=== PATIENT | female | born 1985 | race Caucasian/White ===

== ENCOUNTER 2021-01-22 13:29 | Emergency (ER) | payer OTHER, SELFPAY ==
--- NOTE | ~2021-01-22 | CT_ITS ---
EXAMINATION: CT ABDOMEN AND PELVIS WITH CONTRAST CLINICAL INFORMATION: Abdominal pain, vomiting. COMPARISON: None TECHNIQUE: Multidetector volumetric images were obtained from the superior aspect of the liver through the pubic symphysis following administration 85 mL of Omnipaque 350 intravenous contrast. Sagittal and coronal reformatted images were obtained on the technologist's workstation. Oral contrast: No This CT examination was performed using dose optimization techniques as appropriate, variously including the following: *Automated exposure control *Adjustment of mA and/or kV according to patient size (this includes techniques or standardized protocols for targeted exams where dose is matched to indication/reason for exam; i.e. extremities or head) *Use of iterative reconstruction technique DLP: 336 mGy-cm FINDINGS: LUNG BASES: The visualized lung bases are unremarkable. LIVER, GALLBLADDER, AND BILIARY TREE: The liver is normal in size, shape, and attenuation. No focal hepatic lesion or biliary ductal dilatation is present. The gallbladder is unremarkable with no evidence of radiopaque gallstones, gallbladder wall thickening, or obvious pericholecystic inflammatory changes. PANCREAS: Unremarkable. SPLEEN: Unremarkable. ADRENAL GLANDS: Unremarkable. KIDNEYS AND URETERS: There is either caliectasis of the left kidney versus parapelvic cysts, the latter are considered more likely. The kidneys are otherwise unremarkable as are the ureters. BLADDER: Unremarkable. GASTROINTESTINAL TRACT: The small and large bowel are unremarkable. The appendix is unremarkable. ABDOMINAL WALL: No significant hernia is appreciated. LYMPH NODES: No lymphadenopathy within the abdomen or pelvis by CT criteria. There is fat stranding at the central mesentery with numerous prominent lymph nodes seen within this fat which exerts slight mass effect upon the surrounding small bowel loops. VASCULAR: Unremarkable. PELVIC VISCERA: Complex appearance of the left adnexa with heterogeneous partially cystic partially enhancing lesions. The right adnexa demonstrates either a septated cyst versus 2 closely approximated cysts. The uterus is unremarkable. Trace pelvic free fluid likely physiologic. OSSEOUS STRUCTURES: Unremarkable. CT/CT abdomen pelvis w con IMPRESSION: 1. Complex appearance of the left adnexa with heterogeneous, partially cystic, partially enhancing areas. Correlation with pelvic ultrasound is recommended for initial follow-up. 2. Cystic spaces at the left renal hilum favored to represent parapelvic cysts although caliectasis is within the differential diagnosis. The ureters normal in course and caliber. 3. Subtle fat stranding of the central mesentery with numerous prominent lymph nodes seen, a sanam mesentery appearance. This has a broad differential which includes mesenteric adenitis. It has been described with lymphoma although typically there is a history of lymphoma or evidence of lymphadenopathy elsewhere, not seen on this patient. In the absence of symptoms, it is of uncertain etiology or clinical significance. If there is continued clinical concern, a follow-up CT scan could be obtained in 3-6 months.
--- NOTE | ~2021-01-22 | US_ITS ---
EXAM: Pelvic Ultrasound CLINICAL INDICATION: Left-sided pelvic pain. Rule out torsion. COMPARISON: Same day CT abdomen pelvis. TECHNIQUE: The pelvis was evaluated using transabdominal and transvaginal imaging. Color Doppler imaging and spectral analysis of the bilateral ovaries was also performed. FINDINGS: The uterus measures approximately 8.5 x 4.1 x 4.6 cm in longitudinal by AP by transverse dimension. The endometrial stripe is not thickened and measures 0.5 cm. The cervix measures approximately 2.8 cm in length. Small nabothian cysts are noted within the cervix. The left ovary measures approximately 3.3 x 2.1 x 2.1 cm and is normal. The right ovary measures approximately 3.8 x 3.4 x 3.4 cm and contains a simple appearing approximately 2.8 cm cyst. Spectral analysis reveals normal arterial and venous waveforms in the bilateral ovaries. There is a [id number] amount of free fluid in the pelvis. US/US pelvic ovarian doppler IMPRESSION: 1. Normal thickness endometrial stripe. 2. Both ovaries demonstrate normal arterial and venous waveforms. 3. 2.8 cm simple appearing right ovarian cyst. 4. Mild to moderate amount of free pelvic fluid, nonspecific.
--- NOTE | ~2021-01-22 | US_ITS ---
EXAM: Pelvic Ultrasound CLINICAL INDICATION: Left-sided pelvic pain. Rule out torsion. COMPARISON: Same day CT abdomen pelvis. TECHNIQUE: The pelvis was evaluated using transabdominal and transvaginal imaging. Color Doppler imaging and spectral analysis of the bilateral ovaries was also performed. FINDINGS: The uterus measures approximately 8.5 x 4.1 x 4.6 cm in longitudinal by AP by transverse dimension. The endometrial stripe is not thickened and measures 0.5 cm. The cervix measures approximately 2.8 cm in length. Small nabothian cysts are noted within the cervix. The left ovary measures approximately 3.3 x 2.1 x 2.1 cm and is normal. The right ovary measures approximately 3.8 x 3.4 x 3.4 cm and contains a simple appearing approximately 2.8 cm cyst. Spectral analysis reveals normal arterial and venous waveforms in the bilateral ovaries. There is a [id number] amount of free fluid in the pelvis. US/US pelvic complete IMPRESSION: 1. Normal thickness endometrial stripe. 2. Both ovaries demonstrate normal arterial and venous waveforms. 3. 2.8 cm simple appearing right ovarian cyst. 4. Mild to moderate amount of free pelvic fluid, nonspecific.
[2021-01-22 13:33] VITALS: BP 136/68; RESP 18; TEMP 36.6; O2SAT 98
[2021-01-22 16:27] LABS: MANUAL DIFF FLAG NO
[2021-01-22 16:40] LABS: Basophils Percent Auto 0.4 % (0-2); Eosinophils Absolute Auto 0.1 X10*3/uL (0.0-0.4); Eosinophils Percent Auto 1.6 % (0-4); Hematocrit 36.6 % (37-47); Hemoglobin 12.1 g/dl (12.0-16.0); Imm Gran Abs Auto 0.01 X10*3/uL (0.00-0.03); Imm Gran Pct Auto 0.2 % (0.0-0.4); Lymphocytes Absolute Auto 1.6 X10*3/uL (1.2-4.9); Lymphocytes Percent Auto 29.7 % (20-40); Mean Corpuscular HGB Conc 33.1 g/dl (31.0-35.0); Mean Corpuscular Hemoglobin 29.5 pg (27.0-33.0); Mean Corpuscular Volume 89.3 fL (80-98); Mean Platelet Volume 11.1 fL (9.4-12.3); Monocytes Absolute Auto 0.5 X10*3/uL (0.1-1.2); Monocytes Percent Auto 9.3 % (2-11); Neutrophils Absolute Auto 3.2 X10*3/uL (2.0-8.3); Neutrophils Percent Auto 58.8 % (45-73); Platelet Count 234 X10*3/uL (160-400); Red Cell Distribution Width 12.3 % (11.0-16.0); White Blood Count 5.5 X10*3/uL (4.8-10.8)
[2021-01-22 16:43] VITALS: BP 106/66; PULSE 67; RESP 18; TEMP 36.8; O2SAT 100
--- NOTE | 2021-01-22 16:56 | ED_ITS ---
HPI - Abdominal Pain General Chief Complaint: Abdominal Pain Stated Complaint: stomach pain Time Seen by Provider: 01/22/21 16:22 Source: patient Mode of arrival: ambulatory Limitations: no limitations History of Present Illness HPI narrative: 35-year-old female previously healthy here with complaints of upper back pain for 2 weeks, 1 week of decreased appetite and vomiting and now upper abdominal pain since last night with the sensation of food being stuck. No fevers, chills, urinary symptoms. No constipation or diarrhea. No sick contacts or recent travel Related Data Previous Rx's Medication Instructions Recorded ketorolac 10 mg tablet 10 mg PO Q8H #10 tab 01/22/21 ondansetron 4 mg disintegrating 4 mg PO Q6H PRN #10 tab 01/22/21 tablet Allergies Allergy/AdvReac Type Severity Reaction Status Date / Time No Known Allergies Allergy Verified 01/22/21 13:32 Review of Systems Review of Systems Yes all other systems are reviewed and are negative Constitutional: Reports no additional constitutional complaints, Denies body ache(s), Denies chills, Denies fever(s), Denies headache(s) and Denies weakness Eyes: Reports no additional eye complaints and Denies change in vision Reports system reviewed and no additional complaints, except as documented, Denies dizziness, Denies headache(s), Denies nasal congestion, Denies nasal discharge and Denies neck pain Cardiovascular: Reports no additional cardiovascular complaints, Denies chest pain, Denies leg edema and Denies dyspnea Respiratory: Reports no additional respiratory complaints, Denies cough and Denies dyspnea Gastrointestinal: Reports no additional gastrointestinal complaints, Reports abdominal pain, Denies diarrhea, Reports nausea and Reports vomiting Genitourinary: Reports no additional female genitourinary complaints and Denies urinary incontinence Musculoskeletal: Reports no additional musculoskeletal complaints, Reports back pain, Denies arthralgias, Denies joint swelling, Denies neck pain, Denies nu mbness and Denies tingling Skin/Breast: Reports system reviewed and no additional complaints, except as docu and Denies rash Reports system reviewed and no additional complaints, except as documented, Denies Abnormal speech present, Denies dizziness, Denies headache(s), Denies numbness, Denies tingling and Denies weakness Physical Exam Vital Signs: Vital Signs: Last Vital Signs Temp 98.3 F 01/22/21 16:43 Pulse 67 01/22/21 16:43 Resp 18 01/22/21 16:43 BP 106/66 01/22/21 16:43 Pulse Ox 100 01/22/21 16:43 Body Mass Index 20.0 Const: General: cooperative, healthy appearing, comfortable and no acute distress Orientation/consciousness: patient oriented x3 Limitations: no limitations HENMT: Head: Yes normal to inspection Ears: hearing grossly normal bilaterally General nose exam: Normal external nose present Face and sinus: Yes normal facial exam Mouth: Normal oral and palatal mucosa present Throat: Yes posterior oropharynx normal Eyes: General: appearance normal, both eyes and all related structures Pupils: Equal, round and reactive pupils present Neck: Neck: Yes normal visual inspection Chest: Chest palpation & inspection: normal inspection of the chest Resp: Effort & Inspection: normal respiratory effort Auscultation: clear to auscultation bilaterally Cardio: Rate: regular rate Rhythm: regular rhythm Peripheral pulses: Peripheral pulses 2+ throughout GI: Inspection: Yes normal to inspection Palpation (GI): Soft to palpation, Tenderness to palpation present (GI) (Diffusely tender) and Guarding due to palpation present (GI) Auscultation: normal bowel sounds Back/Spine/Pelvis: Thoracic/Lumbar Spine: thoracic and lumbar spine normal to inspection Skin: General skin exam: no rashes or lesions noted Neuro: General: patient oriented x3, no focal motor deficits and normal sensation to monofilament Cranial nerves: Yes Equal, round and reactive pupils present Cognition (Neuro): normal cognition Speech: No Abnormal speech present Gait exam (Neuro): Normal gait present Motor exam (neuro): 5/5 motor strength present throughout Extrem: General: Yes normal to inspection Course Course Course Narrative: 35-year-old female here with complaints of upper back pain, decreased p.o. intake, vomiting, and upper abdominal pain. On exam the patient has tenderness diffusely in the abdomen. She is hemodynamically stable. Will check labs, UA, urine , CT. 1844- CT A/P IMPRESSION: ? 1. Complex appearance of the left adnexa with heterogeneous, partially cystic, partially enhancing areas. Correlation with pelvic ultrasound is recommended for initial follow-up. 2. Cystic spaces at the left renal hilum favored to represent parapelvic cysts although caliectasis is within the differential diagnosis. The ureters normal in course and caliber. 3. Subtle fat stranding of the central mesentery with numerous prominent lymph nodes seen, a sanam mesentery appearance. This has a broad differential which includes mesenteric adenitis. It has been described with lymphoma although typically there is a history of lymphoma or evidence of lymphadenopathy elsewhere, not seen on this patient. In the absence of symptoms, it is of uncertain etiology or clinical significance. If there is continued clinical concern, a follow-up CT scan could be obtained in 3-6 months. -discussed with Dr. Gillis. Recommended obtaining a pelvic ultrasound to rule out ovarian torsion. 2030- Pelvic US IMPRESSION: 1.? Normal thickness endometrial stripe. 2.? Both ovaries demonstrate normal arterial and venous waveforms. 3.? 2.8 cm simple appearing right ovarian cyst. 4.? Mild to moderate amount of free pelvic fluid, nonspecific. -no evidence of torsion. Patient is feeling pain free after receiving Toradol IV. She did experience some mild itching and hives locally after the IV contrast from the CT which improved with IV Benadryl. No airway involvement. No angioedema. Stable vital signs. Reviewed findings with the patient. We discussed she should follow-up with her primary care doctor for repeat CT scan. Reviewed worrisome signs and symptoms of when to return to the emergency department. Comfortable discharge home. MDM - Abdominal Pain MDM Narrative Medical decision making narrative: cholecystitis Differential Diagnosis Differential diagnosis: Likely acute appendicitis, diverticulitis, gastroenteritis, gastritis and pancreatitis Medical Records Attestation: I reviewed the patient's medical records. Lab Data Attestation: I reviewed the patient's lab results. Result diagrams: 01/22/21 16:21 01/22/21 16:21 Labs: Lab Results 01/22/21 01/22/21 01/22/21 Range/Units 16:21 16:21 16:45 WBC 5.5 (4.8-10.8) X10*3/uL RBC 4.10 L (4.20-5.50) X10*6/uL Hgb 12.1 (12.0-16.0) g/dl Hct 36.6 L (37-47) % MCV 89.3 (80-98) fL MCH 29.5 (27.0-33.0) pg MCHC 33.1 (31.0-35.0) g/dl RDW 12.3 (11.0-16.0) % Plt Count 234 (160-400) X10*3/uL MPV 11.1 (9.4-12.3) fL Immature Gran % (Auto) 0.2 (0.0-0.4) % Neut % (Auto) 58.8 (45-73) % Lymph % (Auto) 29.7 (20-40) % [place] % (Auto) 9.3 (2-11) % Eos % (Auto) 1.6 (0-4) % Baso % (Auto) 0.4 (0-2) % Lymph # (Auto) 1.6 (1.2-4.9) X10*3/uL [place] # (Auto) 0.5 (0.1-1.2) X10*3/uL Eos # (Auto) 0.1 (0.0-0.4) X10*3/uL Baso # (Auto) 0.0 (0.0-0.2) X10*3/uL Abs Immat Gran (auto) 0.01 (0.00-0.03) X10*3/uL Absolute Neuts (auto) 3.2 (2.0-8.3) X10*3/uL Absolute Nucleated RBC 0.000 (0.0-0.012) X10*3/uL Nucleated RBC % (auto) 0.0 (0.0-0.2) /100WBC Sodium 137 (135-145) mmol/L Potassium 4.1 (3.3-5.1) mmol/L Chloride 106 (96-108) mmol/L Carbon Dioxide 24 (22-29) mmol/L Anion Gap 11 L (12-20) BUN 16 (9-16) mg/dL Creatinine 0.64 (0.5-1.4) mg/dL Estim Creat Clear Calc 100.8 Estimated GFR > 60 Random Glucose 93 (60-115) mg/dL Calcium 8.9 (8.4-10.2) mg/dL Total Bilirubin 0.6 (0.0-1.0) mg/dL Direct Bilirubin 0.2 (0.0-0.5) mg/dL AST 12 (5-31) U/L ALT 8 (0-31) U/L Alkaline Phosphatase 46 (39-117) U/L Total Protein 7.3 (6.5-8.0) g/dL Albumin 4.3 (3.5-5.0) g/dL Lipase 17 (8-78) U/L Urine Color YELLOW Urine Appearance CLEAR Urine pH 6.0 (5.0-8.0) Ur Specific [place] 1.025 (1.005-1.025) Urine Protein NEG (NEG-TRACE) MG/DL Urine Glucose (UA) NEG (NEG) MG/DL Urine Ketones NEG (NEG) MG/DL Urine Blood 3+ H (NEG) Urine Nitrite NEG (NEG) Ur Leukocyte Esterase NEG (NEG) Urine RBC 30-49 H (0) /HPF Urine WBC 0-2 (0-4) /HPF Ur Squamous Epith Cells 1+ /LPF Amorphous Sediment 1+ /LPF Urine Bacteria NONE /LPF Urine Test (NEGATIVE) 01/22/21 Range/Units 16:45 WBC (4.8-10.8) X10*3/uL RBC (4.20-5.50) X10*6/uL Hgb (12.0-16.0) g/dl Hct (37-47) % MCV (80-98) fL MCH (27.0-33.0) pg MCHC (31.0-35.0) g/dl RDW (11.0-16.0) % Plt Count (160-400) X10*3/uL MPV (9.4-12.3) fL Immature Gran % (Auto) (0.0-0.4) % Neut % (Auto) (45-73) % Lymph % (Auto) (20-40) % [place] % (Auto) (2-11) % Eos % (Auto) (0-4) % Baso % (Auto) (0-2) % Lymph # (Auto) (1.2-4.9) X10*3/uL [place] # (Auto) (0.1-1.2) X10*3/uL Eos # (Auto) (0.0-0.4) X10*3/uL Baso # (Auto) (0.0-0.2) X10*3/uL Abs Immat Gran (auto) (0.00-0.03) X10*3/uL Absolute Neuts (auto) (2.0-8.3) X10*3/uL Absolute Nucleated RBC (0.0-0.012) X10*3/uL Nucleated RBC % (auto) (0.0-0.2) /100WBC Sodium (135-145) mmol/L Potassium (3.3-5.1) mmol/L Chloride (96-108) mmol/L Carbon Dioxide (22-29) mmol/L Anion Gap (12-20) BUN (9-16) mg/dL Creatinine (0.5-1.4) mg/dL Estim Creat Clear Calc Estimated GFR Random Glucose (60-115) mg/dL Calcium (8.4-10.2) mg/dL Total Bilirubin (0.0-1.0) mg/dL Direct Bilirubin (0.0-0.5) mg/dL AST (5-31) U/L ALT (0-31) U/L Alkaline Phosphatase (39-117) U/L Total Protein (6.5-8.0) g/dL Albumin (3.5-5.0) g/dL Lipase (8-78) U/L Urine Color Urine Appearance Urine pH (5.0-8.0) Ur Specific [place] (1.005-1.025) Urine Protein (NEG-TRACE) MG/DL Urine Glucose (UA) (NEG) MG/DL Urine Ketones (NEG) MG/DL Urine Blood (NEG) Urine Nitrite (NEG) Ur Leukocyte Esterase (NEG) Urine RBC (0) /HPF Urine WBC (0-4) /HPF Ur Squamous Epith Cells /LPF Amorphous Sediment /LPF Urine Bacteria /LPF Urine Test NEGATIVE (NEGATIVE) Imaging Data pelvic US: Attestation: I personally reviewed and interpreted this imaging study as follows: Radiologist's impression: IMPRESSION: 1.? Normal thickness endometrial stripe. 2.? Both ovaries demonstrate normal arterial and venous waveforms. 3.? 2.8 cm simple appearing right ovarian cyst. 4.? Mild to moderate amount of free pelvic fluid, nonspecific. CT scan - abdomen: Attestation: I personally reviewed and interpreted this imaging study as follows: Radiologist's impression: CT/CT abdomen pelvis w con IMPRESSION: ? 1. Complex appearance of the left adnexa with heterogeneous, partially cystic, partially enhancing areas. Correlation with pelvic ultrasound is recommended for initial follow-up. 2. Cystic spaces at the left renal hilum favored to represent parapelvic cysts although caliectasis is within the differential diagnosis. The ureters normal in course and caliber. 3. Subtle fat stranding of the central mesentery with numerous prominent lymph nodes seen, a sanam mesentery appearance. This has a broad differential which includes mesenteric adenitis. It has been described with lymphoma although typically there is a history of lymphoma or evidence of lymphadenopathy elsewhere, not seen on this patient. In the absence of symptoms, it is of uncertain etiology or clinical significance. If there is continued clinical concern, a follow-up CT scan could be obtained in 3-6 months. Discharge Plan Discharge Clinical Impression: Abdominal pain, Ovarian cyst Patient Disposition: Home, Self-Care Instructions: Ovarian Cyst (ED), Abdominal Pain (ED) Additional Instructions: Your CT scan shows inflamed lymph nodes in the abdomen. It is recommended you have a repeat CT scan and 3-6 months. This can be ordered by your primary care doctor. You should follow-up with them as scheduled Increase fluids, rest Heat the abdomen is needed Prescriptions: New ondansetron 4 mg tablet,disintegrating 4 mg PO Q6H PRN (Reason: nausea and vomiting) Qty: 10 RF: 0 ketorolac 10 mg tablet 10 mg PO Q8H Qty: 10 RF: 0 Referrals: Freddy Beach MD [Primary Care Provider] - 2 days Interventions: ED Discharge Assessment Last Done: 01/22/21 20:32 [facility] Past Medical History Attestation statement: The following information was validated with the patient. Source: old records reviewed and nursing notes reviewed Medical History Patient denies medical problems Social History Social History Advance Directives: No Advance Directives Information Provided: Yes Patient : No
[2021-01-22 16:59] LABS: Glucose Urine UA NEG (NEG); Leukocyte Esterase Urine NEG (NEG); Nitrite Urine NEG (NEG); Specific Gravity - Urine 1.025 (1.005-1.025); UACC Culture Trigger NO; Urine Blood 3+ (NEG); Urine Ketones NEG (NEG); Urine Protein NEG (NEG-TRACE)
[2021-01-22 17:01] LABS: Appearance Urine CLEAR; Color Urine YELLOW
[2021-01-22 17:01] LABS: Alanine Aminotransferase 8 U/L (0-31); Albumin Level 4.3 g/dL (3.5-5.0); Alkaline Phosphatase 46 U/L (39-117); Anion Gap 11 (12-20); Aspartate Amino Transferase 12 U/L (5-31); Bilirubin Direct 0.2 mg/dL (0.0-0.5); Bilirubin Total 0.6 mg/dL (0.0-1.0); Blood Urea Nitrogen 16 mg/dL (9-16); Calcium 8.9 mg/dL (8.4-10.2); Carbon Dioxide 24 mmol/L (22-29); Chloride 106 mmol/L (96-108); Creatinine Clr Calc Pharmacy 100.8; Estimated Glomerular Filt Rate > 60; Glucose Random 93 mg/dL (60-115); Lipase 17 U/L (8-78); Potassium 4.1 mmol/L (3.3-5.1); Sodium 137 mmol/L (135-145); Total Protein 7.3 g/dL (6.5-8.0)
[2021-01-22 17:03] LABS: UPreg QC Valid YES; Urine Pregnancy NEGATIVE (NEGATIVE)
[2021-01-22] MEDS: Lidocaine HCl Viscous 2 % 15 ML SOLUTION MUCOUS MEM (17:14)
[2021-01-22] MEDS: Magnesium Hydrox/Alum Hydrox 30 ML ORAL.SUSP PO (17:14)
[2021-01-22 17:15] LABS: Amorphous Sediment Urine 1+ /LPF; RBC Urine 30-49 /HPF (0); Squamous Epithelial Cell Urine 1+ /LPF; WBC Urine 0-2 /HPF (0-4)
[2021-01-22] MEDS: Famotidine/PF 20 MG/2 ML VIAL IVPUSH (17:16)
[2021-01-22] MEDS: iohexoL 350 MG/ML 100 ML INFUS..BTL IV (18:04)
[2021-01-22] MEDS: Ketorolac Tromethamine 15 MG/ML VIAL 30 MG IVPUSH (19:42)
[2021-01-22] MEDS: diphenhydrAMINE HCL 50 MG/ML VIAL IVPUSH (19:50)
== END 2021-01-22 23:58 | disposition home or self-care (01) ==
PROVIDERS: Emergency Provider Emergency Medicine; PCP Internal Medicine
DX: N83.202 Unspecified ovarian cyst, left side (principal); N83.201 Unspecified ovarian cyst, right side; R10.9 Unspecified abdominal pain; M54.5 Low back pain; Z79.899 Other long term (current) drug therapy
CPT/HCPCS: 36415; 74177; 76856; 80048; 80076; 81001; 81025; 83690; 85025; 93975; 96365; 96375; 99284; J1200; J1885; Q9967

== ENCOUNTER 2021-02-02 12:15 | Emergency (ER) | payer OTHER, SELFPAY ==
--- NOTE | ~2021-02-02 | CT_ITS ---
EXAMINATION: CT ABDOMEN AND PELVIS WITH CONTRAST CLINICAL INFORMATION: Upper abdomen/RLQ TTP. Nausea/vomiting. COMPARISON: 01/22/2021 TECHNIQUE: Multidetector volumetric imaging was performed from the superior aspect of the liver through the pubic symphysis following administration of 85 cc of Omnipaque intravenous contrast Sagittal and coronal reformatted images were obtained on the technologist workstation.. This CT examination was performed using dose optimization techniques as appropriate, variously including the following: *Automated exposure control *Adjustment of mA and/or kV according to patient size (this includes techniques or standardized protocols for targeted exams where dose is matched to indication/reason for exam; i.e. extremities or head) *Use of iterative reconstruction technique DLP: 346 mGy-cm FINDINGS: LUNG BASES: Minimal left basilar atelectasis. LIVER, GALLBLADDER, AND BILIARY TREE: Liver is normal in size and shape. There is mild periportal edema now seen which is a nonspecific finding of questionable acute significance. No suspicious focal hepatic lesion or biliary ductal dilatation The gallbladder is contracted but otherwise unremarkable with no evidence of radiopaque gallstones, gallbladder wall thickening, or obvious pericholecystic inflammatory changes. PANCREAS: Unremarkable. SPLEEN: Unremarkable. ADRENAL GLANDS: Unremarkable. KIDNEYS AND URETERS: Mild fullness to the left collecting system and left ureter but I do not appreciate any perinephric stranding. No obvious ureteric or intrarenal calculi and this noncontrast study. BLADDER: Unremarkable. GASTROINTESTINAL TRACT: Colon is partially decompressed. I do not appreciate any colonic wall thickening or pericolonic inflammatory changes. No obstructive changes. Visualized small bowel unremarkable ABDOMINAL WALL: No significant hernia is appreciated. LYMPHOVASCULAR STRUCTURES: The aorta is unremarkable. There is mild mesenteric stranding seen with several low-attenuation mesenteric lymph nodes noted similar to the prior 01/22/2021 study. PELVIC VISCERA: Physiologic changes are seen within the uterus and ovaries. There is fullness to both adnexa with multiple small follicles again seen bilaterally. Small amount of likely physiologic free fluid in the dependent pelvis. Overall this appears similar to the 01/22/2021 study OSSEOUS STRUCTURES: Unremarkable. CT/CT abdomen pelvis w con IMPRESSION: Physiologic changes to the uterus and ovaries similar in appearance to the prior 01/22/2021 CT scan. Of note there was a pelvic ultrasound performed at that time as well. Small amount of likely physiologic free fluid in the cul-de-sac. There is stranding to the mesenteric fat with prominent mesenteric lymph nodes again identified similar in appearance to the prior study. The appearance is nonspecific with multiple etiologies having an overlapping appearance. 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
[2021-02-02 12:47] VITALS: BP 129/77; PULSE 74; RESP 16; TEMP 36.8; O2SAT 100; BMI 19.7
[2021-02-02 15:08] VITALS: BP 118/66; PULSE 65; RESP 12; TEMP 36.8; O2SAT 100
--- NOTE | 2021-02-02 15:19 | ED_ITS ---
HPI - Abdominal Pain General Chief Complaint: Abdominal Pain Stated Complaint: stomach pains Time Seen by Provider: 02/02/21 15:08 Source: patient Mode of arrival: ambulatory History of Present Illness HPI narrative: 35-year-old female with no significant past medical history presenting to the ED with continued abdominal pain, nausea, and vomiting x1 week with inability to tolerate p.o.. Patient was recently seen and treated in our ED on 01/22/2021 for similar symptoms, had labs, and CT showing atypical lymphadenopathy, also pelvic ultrasound showing nonspecific pelvic free fluid, was re-evaluated by PCP today and sent back to the ED for further evaluation. Denies fever, chills, diarrhea/constipation, dysuria/hematuria, vaginal b leeding/discharge, suspicious food intake MD elicited complaint: abdominal pain Related Data Previous Rx's Medication Instructions Recorded ketorolac 10 mg tablet 10 mg PO Q8H #10 tab 01/22/21 ondansetron 4 mg disintegrating 4 mg PO Q6H PRN #10 tab 01/22/21 tablet ketorolac 10 mg tablet 10 mg PO TID PRN 5 Days #15 tab 02/02/21 ondansetron HCl 4 mg tablet 4 mg PO Q8H PRN #10 tab 02/02/21 (Zofran) Allergies Allergy/AdvReac Type Severity Reaction Status Date / Time No Known Allergies Allergy Verified 01/22/21 13:32 Review of Systems Review of Systems Constitutional: No Fever, No Chills, No Fatigue, No Malaise ENT/Mouth: No Ear Pain, No Nasal Congestion, No sore throat, No Swallowing Di fficulty Eyes: No Eye Pain, No Swelling Cardiovascular: No Chest Pain, No SOB Respiratory: No Cough, No Dyspnea Gastrointestinal: + Nausea, + Vomiting, No Diarrhea, No Constipation, + Abdominal pain, No Hematochezia, No Melena Genitourinary: No irregular bleeding, No Dysuria, No Urinary Frequency, No Hematuria, No Flank Pain Musculoskeletal: No joint pain, No Myalgias Skin: No Skin Lesions, No rash Neuro: No Weakness, No Headache Yes all other systems are reviewed and are negative Physical Exam Vital Signs: Vital Signs: Last Vital Signs Temp 98.2 F 02/02/21 15:08 Pulse 74 02/02/21 16:27 Resp 18 02/02/21 16:27 BP 118/66 02/02/21 15:08 Pulse Ox 100 02/02/21 16:27 Body Mass Index 19.7 Const: General: cooperative, healthy appearing and no acute distress Orientation/consciousness: patient oriented x3 Limitations: no limitations HENMT: Head: Yes normal to inspection Ears: hearing grossly normal bilaterally General nose exam: Normal external nose present Face and sinus: Yes normal facial exam Eyes: General: appearance normal, both eyes and all related structures EOM: EOMs intact bilaterally Neck: Neck: Yes normal visual inspection Resp: Effort & Inspection: normal respiratory effort and no respiratory distress Cardio: Rate: regular rate GI: Inspection: Yes normal to inspection Palpation (GI): Soft to palpation, Tenderness to palpation present (GI) in the RLQ, in the LUQ and in the RUQ, no guarding and not rigid : General: Yes no CVA tenderness Back/Spine/Pelvis: Back: no CVA tenderness Skin: Rashes: no rashes Wounds: no wounds Neuro: General: patient oriented x3 Gait exam (Neuro): Normal gait present Extrem: General: Yes normal to inspection Course Course Course Narrative: -no leukocytosis. H&H is stable, BUN elevated to 22 likely from dehydration, labs otherwise unremarkable -UA with 40 ketones consistent with dehydration > patient given 2L IVF CT abdomen pelvis w con IMPRESSION: Physiologic changes to the uterus and ovaries similar in appearance to the prior 01/22/2021 CT scan. Of note there was a pelvic ultrasound performed at that time as well. Small amount of likely physiologic free fluid in the cul-de-sac. ? There is stranding to the mesenteric fat with prominent mesenteric lymph nodes again identified similar in appearance to the prior study. The appearance is nonspecific with multiple etiologies having an overlapping appearance. 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 >> results discussed with patient including worrisome signs and symptoms and strict return precautions. The calloused with patient needed follow-up with PCP for repeat CT in 3-6 months as previously recommended. Will p.o. challenge and re-evaluate. -190--patient tolerated p.o. kasey juan and saltines in the ED without nausea/vomiting. Admission was offered however patient would like to go home. Worrisome signs and symptoms and strict return precautions discussed, she verbalized understanding feel safe for discharge home MDM - Abdominal Pain MDM Narrative Medical decision making narrative: 35-year-old female with no significant past medical history presenting to the ED with continued abdominal pain, nausea, and vomiting x1 week with inability to tolerate p.o. on exam VSS, NAD, abdomen soft with upper/RLQ ttp, no rebound or guarding, no CVAT. Concern for appendicitis vs pancreatitis vs cholecystitis/lithiasis vs gastroenteritis or colitis. P revious CT concerning for possible lymphoma. Plan: Labs, UA, urine , repeat CT, IVF, symptomatic treatment, reassess Differential Diagnosis Differential diagnosis: Likely abdominal pain Medical Records Attestation: I reviewed the patient's medical records. Lab Data Attestation: I reviewed the patient's lab results. Result diagrams: 02/02/21 15:27 02/02/21 15:27 Labs: Lab Results 02/02/21 02/02/21 02/02/21 Range/Units 15:27 15:27 15:27 WBC 6.1 (4.8-10.8) X10*3/uL RBC 4.04 L (4.20-5.50) X10*6/uL Hgb 11.5 L (12.0-16.0) g/dl Hct 35.7 L (37-47) % MCV 88.4 (80-98) fL MCH 28.5 (27.0-33.0) pg MCHC 32.2 (31.0-35.0) g/dl RDW 11.9 (11.0-16.0) % Plt Count 226 (160-400) X10*3/uL MPV 10.5 (9.4-12.3) fL Immature Gran % (Auto) 0.2 (0.0-0.4) % Neut % (Auto) 54.5 (45-73) % Lymph % (Auto) 36.5 (20-40) % [place] % (Auto) 7.5 (2-11) % Eos % (Auto) 1.0 (0-4) % Baso % (Auto) 0.3 (0-2) % Lymph # (Auto) 2.2 (1.2-4.9) X10*3/uL [place] # (Auto) 0.5 (0.1-1.2) X10*3/uL Eos # (Auto) 0.1 (0.0-0.4) X10*3/uL Baso # (Auto) 0.0 (0.0-0.2) X10*3/uL Abs Immat Gran (auto) 0.01 (0.00-0.03) X10*3/uL Absolute Neuts (auto) 3.3 (2.0-8.3) X10*3/uL Absolute Nucleated RBC 0.000 (0.0-0.012) X10*3/uL Nucleated RBC % (auto) 0.0 (0.0-0.2) /100WBC Sodium 139 (135-145) mmol/L Potassium 3.9 (3.3-5.1) mmol/L Chloride 107 (96-108) mmol/L Carbon Dioxide 24 (22-29) mmol/L Anion Gap 12 (12-20) BUN 22 H (9-16) mg/dL Creatinine 0.68 (0.5-1.4) mg/dL Estim Creat Clear Calc 93.2 Estimated GFR > 60 Random Glucose 85 (60-115) mg/dL Lactic Acid 0.8 (0.5-2.0) mmol/L Calcium 9.3 (8.4-10.2) mg/dL Magnesium 2.2 (1.6-2.6) mg/dL Total Bilirubin 0.5 (0.0-1.0) mg/dL Direct Bilirubin < 0.2 (0.0-0.5) mg/dL AST 15 (5-31) U/L ALT 15 (0-31) U/L Alkaline Phosphatase 32 L D (39-117) U/L Total Protein 7.3 (6.5-8.0) g/dL Albumin 4.4 (3.5-5.0) g/dL Lipase 11 (8-78) U/L Urine Color Urine Appearance Urine pH (5.0-8.0) Ur Specific [place] (1.005-1.025) Urine Protein (NEG-TRACE) MG/DL Urine Glucose (UA) (NEG) MG/DL Urine Ketones (NEG) MG/DL Urine Blood (NEG) Urine Nitrite (NEG) Ur Leukocyte Esterase (NEG) Urine Test (NEGATIVE) 02/02/21 02/02/21 Range/Units 16:42 16:42 WBC (4.8-10.8) X10*3/uL RBC (4.20-5.50) X10*6/uL Hgb (12.0-16.0) g/dl Hct (37-47) % MCV (80-98) fL MCH (27.0-33.0) pg MCHC (31.0-35.0) g/dl RDW (11.0-16.0) % Plt Count (160-400) X10*3/uL MPV (9.4-12.3) fL Immature Gran % (Auto) (0.0-0.4) % Neut % (Auto) (45-73) % Lymph % (Auto) (20-40) % [place] % (Auto) (2-11) % Eos % (Auto) (0-4) % Baso % (Auto) (0-2) % Lymph # (Auto) (1.2-4.9) X10*3/uL [place] # (Auto) (0.1-1.2) X10*3/uL Eos # (Auto) (0.0-0.4) X10*3/uL Baso # (Auto) (0.0-0.2) X10*3/uL Abs Immat Gran (auto) (0.00-0.03) X10*3/uL Absolute Neuts (auto) (2.0-8.3) X10*3/uL Absolute Nucleated RBC (0.0-0.012) X10*3/uL Nucleated RBC % (auto) (0.0-0.2) /100WBC Sodium (135-145) mmol/L Potassium (3.3-5.1) mmol/L Chloride (96-108) mmol/L Carbon Dioxide (22-29) mmol/L Anion Gap (12-20) BUN (9-16) mg/dL Creatinine (0.5-1.4) mg/dL Estim Creat Clear Calc Estimated GFR Random Glucose (60-115) mg/dL Lactic Acid (0.5-2.0) mmol/L Calcium (8.4-10.2) mg/dL Magnesium (1.6-2.6) mg/dL Total Bilirubin (0.0-1.0) mg/dL Direct Bilirubin (0.0-0.5) mg/dL AST (5-31) U/L ALT (0-31) U/L Alkaline Phosphatase (39-117) U/L Total Protein (6.5-8.0) g/dL Albumin (3.5-5.0) g/dL Lipase (8-78) U/L Urine Color YELLOW Urine Appearance CLEAR Urine pH 6.0 (5.0-8.0) Ur Specific [place] 1.015 (1.005-1.025) Urine Protein NEG (NEG-TRACE) MG/DL Urine Glucose (UA) NEG (NEG) MG/DL Urine Ketones 40 (NEG) MG/DL Urine Blood NEG (NEG) Urine Nitrite NEG (NEG) Ur Leukocyte Esterase NEG (NEG) Urine Test NEGATIVE (NEGATIVE) Discharge Plan Discharge Clinical Impression: Abdominal pain Qualifiers: Abdominal location: generalized Qualified Code(s): R10.84 - Generalized abdominal pain Patient Disposition: Home, Self-Care Instructions: Abdominal Pain (ED) Additional Instructions: Your blood work was reassuring today in the ED. Her CT scan is similar to prior CT on 01/22/2021 showing nonspecific lymphadenopathy, it is recommended you for repeat CT scan in 6 months for re-evaluation. Ketorolac is an anti-inflammatory/pain medication, take with food Zofran as antinausea medication, take as needed It is very important they were staying hydrated at home, drink plenty of fluids You need to follow-up with a clinic specialist If her symptoms persist or worsen, your unable to eat or drink, develops fever, persistent nausea/vomiting please return to the ED immediately Prescriptions: New ondansetron HCl [Zofran] 4 mg tablet 4 mg PO Q8H PRN (Reason: nausea and vomiting) Qty: 10 RF: 0 ketorolac 10 mg tablet 10 mg PO TID PRN (Reason: pain) 5 Days Qty: 15 RF: 0 No Action ondansetron 4 mg tablet,disintegrating 4 mg PO Q6H PRN (Reason: nausea and vomiting) Qty: 10 RF: 0 ketorolac 10 mg tablet 10 mg PO Q8H Qty: 10 RF: 0 Referrals: Ramon Hayes MD [Physician] - 5 days [facility] Past Medical History Attestation statement: The following information was validated with the patient. Medical History Patient denies medical problems Social History Social History Advance Directives: No Advance Directives Information Provided: No Patient : No
[2021-02-02 15:31] LABS: MANUAL DIFF FLAG NO
[2021-02-02] MEDS: Ketorolac Tromethamine 15 MG/ML VIAL IVPUSH (15:31)
[2021-02-02] MEDS: Famotidine/PF 20 MG/2 ML VIAL IVPUSH (15:32)
[2021-02-02] MEDS: diphenhydrAMINE HCL 50 MG/ML VIAL IVPUSH (15:32)
[2021-02-02] MEDS: ondansetron HCL 4 MG/2 ML VIAL IVPUSH (15:32)
[2021-02-02 15:33] LABS: Basophils Percent Auto 0.3 % (0-2); Eosinophils Absolute Auto 0.1 X10*3/uL (0.0-0.4); Hematocrit 35.7 % (37-47); Hemoglobin 11.5 g/dl (12.0-16.0); Imm Gran Abs Auto 0.01 X10*3/uL (0.00-0.03); Imm Gran Pct Auto 0.2 % (0.0-0.4); Lymphocytes Absolute Auto 2.2 X10*3/uL (1.2-4.9); Lymphocytes Percent Auto 36.5 % (20-40); Mean Corpuscular HGB Conc 32.2 g/dl (31.0-35.0); Mean Corpuscular Hemoglobin 28.5 pg (27.0-33.0); Mean Corpuscular Volume 88.4 fL (80-98); Mean Platelet Volume 10.5 fL (9.4-12.3); Monocytes Absolute Auto 0.5 X10*3/uL (0.1-1.2); Monocytes Percent Auto 7.5 % (2-11); Neutrophils Absolute Auto 3.3 X10*3/uL (2.0-8.3); Neutrophils Percent Auto 54.5 % (45-73); Platelet Count 226 X10*3/uL (160-400); Red Blood Count 4.04 X10*6/uL (4.20-5.50); Red Cell Distribution Width 11.9 % (11.0-16.0); White Blood Count 6.1 X10*3/uL (4.8-10.8)
[2021-02-02] MEDS: 0.9 % Sodium Chloride 1,000 ML 999 ML IVCONT ×2 (15:35→16:27)
[2021-02-02 15:56] LABS: Lactic Acid 0.8 mmol/L (0.5-2.0)
[2021-02-02 16:02] LABS: Alanine Aminotransferase 15 U/L (0-31); Albumin Level 4.4 g/dL (3.5-5.0); Alkaline Phosphatase 32 U/L (39-117); Anion Gap 12 (12-20); Aspartate Amino Transferase 15 U/L (5-31); Bilirubin Direct < 0.2 mg/dL (0.0-0.5); Bilirubin Total 0.5 mg/dL (0.0-1.0); Blood Urea Nitrogen 22 mg/dL (9-16); Calcium 9.3 mg/dL (8.4-10.2); Carbon Dioxide 24 mmol/L (22-29); Chloride 107 mmol/L (96-108); Creatinine Clr Calc Pharmacy 93.2; Estimated Glomerular Filt Rate > 60; Glucose Random 85 mg/dL (60-115); Lipase 11 U/L (8-78); Magnesium 2.2 mg/dL (1.6-2.6); Potassium 3.9 mmol/L (3.3-5.1); Sodium 139 mmol/L (135-145); Total Protein 7.3 g/dL (6.5-8.0)
[2021-02-02 16:27] VITALS: PULSE 74; RESP 18; O2SAT 100
[2021-02-02 16:52] LABS: Glucose Urine UA NEG (NEG); Leukocyte Esterase Urine NEG (NEG); Nitrite Urine NEG (NEG); Specific Gravity - Urine 1.015 (1.005-1.025); Urine Blood NEG (NEG); Urine Ketones 40 MG/DL (NEG); Urine Protein NEG (NEG-TRACE)
[2021-02-02 16:56] LABS: Appearance Urine CLEAR; Color Urine YELLOW
[2021-02-02 16:57] LABS: UPreg QC Valid YES; Urine Pregnancy NEGATIVE (NEGATIVE)
[2021-02-02] MEDS: iohexoL 350 MG/ML 100 ML INFUS..BTL IV (17:25)
--- NOTE | 2021-02-02 19:18 | PC.NURSE ---
pt is feeling nausea and denies pain. 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 pt sat at 100% hr 70 no ss of distress. skin pink warm and dry.pt is alert and oriented.
== END 2021-02-02 19:30 | disposition home or self-care (01) ==
PROVIDERS: Physician Assistant; Emergency Provider Emergency Medicine
DX: R10.84 Generalized abdominal pain (principal); R11.2 Nausea with vomiting, unspecified
CPT/HCPCS: 36415; 74177; 80048; 80076; 81003; 81025; 83605; 83690; 83735; 85025; 96361; 96374; 96375; 99284; J1200; J1885; J2405; Q9967

== ENCOUNTER 2021-10-17 17:36 | Emergency (ER) | payer OTHER, SELFPAY ==
--- NOTE | ~2021-10-17 | CT_ITS ---
EXAMINATION: CT HEAD WITHOUT CONTRAST CLINICAL INFORMATION: Headache COMPARISON: None TECHNIQUE: Contiguous axial imaging was performed from the skull base to vertex without intravenous administration of contrast. This CT examination was performed using dose optimization techniques as appropriate, variously including the following: *Automated exposure control *Adjustment of mA and/or kV according to patient size (this includes techniques or standardized protocols for targeted exams where dose is matched to indication/reason for exam; i.e. extremities or head) *Use of iterative reconstruction technique DLP: 535 mGy-cm FINDINGS: There is no evidence of acute intracranial hemorrhage or territorial infarction. No abnormal mass effect or midline shift is seen. Stephens to white matter differentiation is well preserved. No extra-axial fluid collections are identified. The ventricles are normal in size. There is no abnormal attenuation within the brain parenchyma. The osseous structures and soft tissues are normal. The mastoid air cells are well aerated. Minimal mucosal sinus thickening in right ethmoid air cells. The other visualized paranasal sinuses are unremarkable. CT/CT head/brain wo con IMPRESSION: No acute intracranial pathology.
[2021-10-17 17:38] VITALS: BP 154/89; PULSE 122; RESP 20; TEMP 37.7; O2SAT 100; BMI 18.8
--- NOTE | 2021-10-17 18:03 | ED.HA ---
HPI - Headache General Chief Complaint: Headache Stated Complaint: Headache Time Seen by Provider: 10/17/21 17:48 History of Present Illness HPI Narrative: Patient is a 28 year presented with a fever headache frontal. Associated with neck pain associated photophobia no significant past before. No coughing or congestion no respiratory. No no recent travel. No focal weakness Related Data Previous Rx's Medication Instructions Recorded ketorolac 10 mg tablet 10 mg PO Q8H #10 tab 01/22/21 ondansetron 4 mg disintegrating 4 mg PO Q6H PRN #10 tab 01/22/21 tablet ketorolac 10 mg tablet 10 mg PO TID PRN 5 Days #15 tab 02/02/21 ondansetron HCl 4 mg tablet 4 mg PO Q8H PRN #10 tab 02/02/21 (Zofran) Allergies Allergy/AdvReac Type Severity Reaction Status Date / Time No Known Allergies Allergy Verified 10/17/21 17:42 Review of Systems Review of Systems: No chest pain or shortness breath paresis Yes all other systems are reviewed and are negative [facility] Past Medical History Attestation statement: The following information was validated with the patient. Medical History Patient denies medical problems Social History Social History Advance Directives: No Advance Directives Information Provided: No Patient : No Physical Exam Vital Signs: Vital Signs: Last Vital Signs Temp 98.2 F 10/17/21 19:25 Pulse 83 10/17/21 20:25 Resp 14 10/17/21 20:25 BP 108/65 10/17/21 20:25 Pulse Ox 98 10/17/21 20:25 BMI result Body Mass Index 18.8 Appearance: Alert. Oriented X3. No acute distress. Eyes: Pupils equal, round and reactive to light. ENT: Pharynx normal. Neck: Normal inspection. Neck supple. No lymph nodes noted. No crepitus CVS: Normal heart rate and rhythm. Pulses normal. Normal S1 and S2 Respiratory: No respiratory distress. Breath sounds normal. No Wheezing. No rales Abdomen: Soft and nontender. No rigidity. No distention. good BS x4 Skin: Skin warm and dry. Normal skin color. Normal skin turgor. Extremities: No lower extremity edema. Neurovascular intact to all extremities. No Lacerations. No Rash Neuro: Oriented X 3. No motor deficit. No sensory deficit. Moving all extermities. No slurred speech MDM - Headache MDM Narrative Medical decision making narrative: Patient initially complaining of fever headache neck pain. Labs ordered CT scan of the head was grossly negative for any acute evidence of bleeding. Because the patient's fever neck pain. Discussed with patient the need to do a lumbar puncture to rule out the possibility of meningitis. Antibiotic was given. Patient did not want the lumbar puncture did not want to stay in the hospital. After medication for migraine headache the headache subsided. Explained to patient the workup is not complete. Patient wants to go home. States understanding. Repeat exam patient neurologically intact. Medical Records Attestation: I reviewed the patient's medical records. Lab Data Attestation: I reviewed the patient's lab results. Result diagrams: 10/17/21 18:34 10/17/21 18:34 Labs: Lab Results 10/17/21 10/17/21 10/17/21 Range/Units 18:34 18:34 18:34 WBC 6.6 (4.8-10.8) X10*3/uL RBC 4.12 L (4.20-5.50) X10*6/uL Hgb 12.1 (12.0-16.0) g/dl Hct 35.8 L (37.0-47.0) % MCV 86.9 (80.0-98.0) fL MCH 29.4 (27.0-33.0) pg MCHC 33.8 (31.0-35.0) g/dl RDW 11.8 (11.0-16.0) % Plt Count 203 (160-400) X10*3/uL MPV 10.7 (9.4-12.3) fL Immature Gran % (Auto) 0.3 (0.0-0.4) % Neut % (Auto) 83.9 H (45-73) % Lymph % (Auto) 5.2 L (20-40) % [place] % (Auto) 10.2 (2-11) % Eos % (Auto) 0.2 (0-4) % Baso % (Auto) 0.2 (0-2) % Lymph # (Auto) 0.3 L (1.2-4.9) X10*3/uL [place] # (Auto) 0.7 (0.1-1.2) X10*3/uL Eos # (Auto) 0.0 (0.0-0.4) X10*3/uL Baso # (Auto) 0.0 (0.0-0.2) X10*3/uL Abs Immat Gran (auto) 0.02 (0.00-0.03) X10*3/uL Absolute Neuts (auto) 5.5 (2.0-8.3) x10*3/uL Absolute Nucleated RBC 0.000 (0.0-0.012) X10*3/uL Nucleated RBC % (auto) 0.0 (0.0-0.2) /100WBC Sodium 139 (135-145) mmol/L Potassium 3.7 (3.3-5.1) mmol/L Chloride 106 (96-108) mmol/L Carbon Dioxide 23 (22-29) mmol/L Anion Gap 14 (12-20) BUN 13 (9-16) mg/dL Creatinine 0.70 (0.5-1.4) mg/dL Estim Creat Clear Calc 85.8 Estimated GFR > 60 Random Glucose 80 (60-115) mg/dL Lactic Acid 1.1 (0.5-2.0) mmol/L Calcium 9.7 (8.4-10.2) mg/dL Total Bilirubin 0.2 (0.0-1.0) mg/dL Direct Bilirubin < 0.2 (0.0-0.5) mg/dL AST 15 (5-31) U/L ALT 12 (0-31) U/L Alkaline Phosphatase 31 L (39-117) U/L Total Protein 7.7 (6.5-8.0) g/dL Albumin 4.4 (3.5-5.0) g/dL Urine Color Urine Appearance Urine pH (5.0-8.0) Ur Specific [place] (1.005-1.025) Urine Protein (NEG-TRACE) MG/DL Urine Glucose (UA) (NEG) MG/DL Urine Ketones (NEG) MG/DL Urine Blood (NEG) Urine Nitrite (NEG) Ur Leukocyte Esterase (NEG) Urine RBC (0) /HPF Urine WBC (0-4) /HPF Ur Squamous Epith Cells /LPF Calcium Oxalate Crystal /LPF Urine Bacteria /LPF Urine Mucus /LPF Urine Test (NEGATIVE) 10/17/21 10/17/21 Range/Units 19:24 19:24 WBC (4.8-10.8) X10*3/uL RBC (4.20-5.50) X10*6/uL Hgb (12.0-16.0) g/dl Hct (37.0-47.0) % MCV (80.0-98.0) fL MCH (27.0-33.0) pg MCHC (31.0-35.0) g/dl RDW (11.0-16.0) % Plt Count (160-400) X10*3/uL MPV (9.4-12.3) fL Immature Gran % (Auto) (0.0-0.4) % Neut % (Auto) (45-73) % Lymph % (Auto) (20-40) % [place] % (Auto) (2-11) % Eos % (Auto) (0-4) % Baso % (Auto) (0-2) % Lymph # (Auto) (1.2-4.9) X10*3/uL [place] # (Auto) (0.1-1.2) X10*3/uL Eos # (Auto) (0.0-0.4) X10*3/uL Baso # (Auto) (0.0-0.2) X10*3/uL Abs Immat Gran (auto) (0.00-0.03) X10*3/uL Absolute Neuts (auto) (2.0-8.3) x10*3/uL Absolute Nucleated RBC (0.0-0.012) X10*3/uL Nucleated RBC % (auto) (0.0-0.2) /100WBC Sodium (135-145) mmol/L Potassium (3.3-5.1) mmol/L Chloride (96-108) mmol/L Carbon Dioxide (22-29) mmol/L Anion Gap (12-20) BUN (9-16) mg/dL Creatinine (0.5-1.4) mg/dL Estim Creat Clear Calc Estimated GFR Random Glucose (60-115) mg/dL Lactic Acid (0.5-2.0) mmol/L Calcium (8.4-10.2) mg/dL Total Bilirubin (0.0-1.0) mg/dL Direct Bilirubin (0.0-0.5) mg/dL AST (5-31) U/L ALT (0-31) U/L Alkaline Phosphatase (39-117) U/L Total Protein (6.5-8.0) g/dL Albumin (3.5-5.0) g/dL Urine Color YELLOW Urine Appearance CLEAR Urine pH 6.0 (5.0-8.0) Ur Specific [place] 1.010 (1.005-1.025) Urine Protein NEG (NEG-TRACE) MG/DL Urine Glucose (UA) NEG (NEG) MG/DL Urine Ketones NEG (NEG) MG/DL Urine Blood NEG (NEG) Urine Nitrite NEG (NEG) Ur Leukocyte Esterase NEG (NEG) Urine RBC 0 (0) /HPF Urine WBC 0 (0-4) /HPF Ur Squamous Epith Cells 3+ /LPF Calcium Oxalate Crystal TRACE /LPF Urine Bacteria NONE /LPF Urine Mucus 4+ /LPF Urine Test NEGATIVE (NEGATIVE) Discharge Plan Discharge Clinical Impression: Headache Patient Disposition: Left Against Medical Advice Instructions: Acute Headache (DC), Against Medical Advice (ED) Prescriptions: No Action ondansetron 4 mg tablet,disintegrating 4 mg PO Q6H PRN (Reason: nausea and vomiting) Qty: 10 0RF ketorolac 10 mg tablet 10 mg PO Q8H Qty: 10 0RF Rx Instructions: received first dose in ed ondansetron HCl [Zofran] 4 mg tablet 4 mg PO Q8H PRN (Reason: nausea and vomiting) Qty: 10 0RF ketorolac 10 mg tablet 10 mg PO TID PRN (Reason: pain) 5 Days Qty: 15 0RF Referrals: Physician,Unknown J [Primary Care Provider] - (Risk of meningitis exist. If you change of mind please come back to the emergency department.)
[2021-10-17 18:39] LABS: MANUAL DIFF FLAG NO
[2021-10-17 18:41] LABS: Basophils Percent Auto 0.2 % (0-2); Eosinophils Percent Auto 0.2 % (0-4); Hematocrit 35.8 % (37.0-47.0); Hemoglobin 12.1 g/dl (12.0-16.0); Imm Gran Abs Auto 0.02 X10*3/uL (0.00-0.03); Imm Gran Pct Auto 0.3 % (0.0-0.4); Lymphocytes Absolute Auto 0.3 X10*3/uL (1.2-4.9); Lymphocytes Percent Auto 5.2 % (20-40); Mean Corpuscular HGB Conc 33.8 g/dl (31.0-35.0); Mean Corpuscular Hemoglobin 29.4 pg (27.0-33.0); Mean Corpuscular Volume 86.9 fL (80.0-98.0); Mean Platelet Volume 10.7 fL (9.4-12.3); Monocytes Absolute Auto 0.7 X10*3/uL (0.1-1.2); Monocytes Percent Auto 10.2 % (2-11); Neutrophils Absolute Auto 5.5 x10*3/uL (2.0-8.3); Neutrophils Percent Auto 83.9 % (45-73); Platelet Count 203 X10*3/uL (160-400); Red Blood Count 4.12 X10*6/uL (4.20-5.50); Red Cell Distribution Width 11.8 % (11.0-16.0); White Blood Count 6.6 X10*3/uL (4.8-10.8)
[2021-10-17] MEDS: cefTRIAXone sodium 2 GM in 0.9 % Sodium Chloride 50 ML IV (18:45)
[2021-10-17] MEDS: 0.9 % Sodium Chloride 1,000 ML 999 ML IV (18:46)
[2021-10-17 18:56] LABS: Alanine Aminotransferase 12 U/L (0-31); Albumin Level 4.4 g/dL (3.5-5.0); Alkaline Phosphatase 31 U/L (39-117); Anion Gap 14 (12-20); Aspartate Amino Transferase 15 U/L (5-31); Bilirubin Direct < 0.2 mg/dL (0.0-0.5); Bilirubin Total 0.2 mg/dL (0.0-1.0); Blood Urea Nitrogen 13 mg/dL (9-16); Calcium 9.7 mg/dL (8.4-10.2); Carbon Dioxide 23 mmol/L (22-29); Chloride 106 mmol/L (96-108); Creatinine Clr Calc Pharmacy 85.8; Estimated Glomerular Filt Rate > 60; Glucose Random 80 mg/dL (60-115); Potassium 3.7 mmol/L (3.3-5.1); Sodium 139 mmol/L (135-145); Total Protein 7.7 g/dL (6.5-8.0)
[2021-10-17 19:00] LABS: Lactic Acid 1.1 mmol/L (0.5-2.0)
--- NOTE | 2021-10-17 19:10 | PC.NURSE ---
Took report from Jie to assume care of Pt.
[2021-10-17 19:25] VITALS: BP 135/73; PULSE 92; RESP 16; TEMP 36.8; O2SAT 100
[2021-10-17 19:32] LABS: Appearance Urine CLEAR; Color Urine YELLOW; Glucose Urine UA NEG (NEG); Leukocyte Esterase Urine NEG (NEG); Nitrite Urine NEG (NEG); Urine Blood NEG (NEG); Urine Ketones NEG (NEG); Urine Protein NEG (NEG-TRACE)
[2021-10-17 19:34] LABS: UPreg QC Valid YES; Urine Pregnancy NEGATIVE (NEGATIVE)
[2021-10-17 19:38] LABS: Calcium Oxalate Crystals Urine TRACE /LPF; Mucus Urine 4+ /LPF; RBC Urine 0 /HPF (0); Squamous Epithelial Cell Urine 3+ /LPF; WBC Urine 0 /HPF (0-4)
[2021-10-17] MEDS: ondansetron HCL 4 MG/2 ML VIAL IVPUSH (19:42)
[2021-10-17] MEDS: HYDROmorphone HCl 0.5 MG/0.5 ML SYRINGE IVPUSH (19:42)
[2021-10-17 20:25] VITALS: BP 108/65; PULSE 83; RESP 14; O2SAT 98
[2021-10-17] MEDS: Ketorolac Tromethamine 30 MG/ML VIAL IVPUSH (20:39)
[2021-10-17] MEDS: Metoclopramide HCl 10 MG/2 ML VIAL IVPUSH (20:53)
[2021-10-17 21:33] VITALS: BP 96/53; PULSE 70; RESP 16; O2SAT 96
[2021-10-17 21:35] VITALS: BP 100/55
[2021-10-19 22:13] LABS: Lyme Abs Screen <0.90 index
[2021-10-22 17:26] LABS: A. Phagocytophilum Ab IgG <1:64 (<1:64); A. Phagocytophilum Ab IgM <1:20 (<1:20); E. Chaffeensis Ab IgG <1:64 (<1:64); E. Chaffeensis Ab IgM <1:20 (<1:20)
== END 2021-10-17 21:38 | disposition left against medical advice (07) ==
PROVIDERS: Emergency Provider Emergency Medicine Emergency Medical Services
DX: R51.9 Headache, unspecified (principal); M54.2 Cervicalgia
CPT/HCPCS: 36415; 70450; 80048; 80076; 81001; 81025; 83605; 85025; 86617; 86618; 86666; 87040; 96365; 96375; 99284; J0696; J1170; J1885; J2405; J2765

== ENCOUNTER 2023-04-15 10:59 | Emergency (ER) | payer OTHER, SELFPAY ==
--- NOTE | ~2023-04-15 | XR_ITS ---
EXAMINATION: XR CHEST CLINICAL INFORMATION: Chest pain COMPARISON: None available. TECHNIQUE: Frontal view of the chest was obtained. FINDINGS: No significant abnormality is noted involving the heart, lungs, mediastinum, bony thorax or soft tissues. XR/XR chest 1V IMPRESSION: Unremarkable examination.
--- NOTE | ~2023-04-15 | CT_ITS ---
EXAMINATION: CT ANGIOGRAM OF THE CHEST WITH AND WITHOUT CONTRAST (CT PULMONARY ANGIOGRAM FOR PE) CLINICAL INFORMATION: Reason for Exam Chest pain, SOB, palpitations, recent trip R/O PE COMPARISON: None available. TECHNIQUE: Prior to contrast administration, noncontrast localization images were obtained. Subsequently, multidetector volumetric imaging was performed from the thoracic inlet to below the diaphragms following the administration of 80 mL Omnipaque 350 intravenous contrast. No contrast reaction reported Sagittal, coronal, and MIP oblique sagittal reformatted images were obtained on the CT workstation, uploaded to PACS, and reviewed. This CT examination was performed using dose optimization techniques as appropriate, variously including the following: *Automated exposure control *Adjustment of mA and/or kV according to patient size (this includes techniques or standardized protocols for targeted exams where dose is matched to indication/reason for exam; i.e. extremities or head) *Use of iterative reconstruction technique Total exam dose-length product 247 mGy-cm FINDINGS: QUALITY OF STUDY/CONTRAST BOLUS: Satisfactory. PULMONARY ARTERIES: No pulmonary emboli. THORACIC AORTA: No aneurysm. LUNG: No focal consolidation, nodules or masses. PLEURA: No pleural effusion or pneumothorax. MEDIASTINUM: Normal heart size. No pericardial effusion. No hilar or mediastinal lymphadenopathy. No evidence of septal bowing or right heart strain. CORONARY ARTERY CALCIFICATION: None visualized on this study. CHEST WALL/AXILLA: No axillary or internal mammary lymphadenopathy. OSSEOUS STRUCTURES: No acute or suspicious osseous abnormality. UPPER ABDOMEN: Unremarkable. No reflux of contrast into the hepatic veins to suggest elevated right heart pressures. CT/CT angio chest PE protocol IMPRESSION: No evidence for pulmonary embolus. No active cardiopulmonary disease. VTE: Negative.
--- NOTE | 2023-04-15 11:00 | ECG_ITS ---
Test Reason : cp Blood Pressure : / mmHG Vent. Rate : 097 BPM Atrial Rate : 097 BPM P-R Int : 136 ms QRS Dur : 084 ms QT Int : 346 ms P-R-T Axes : 071 012 029 degrees QTc Int : 439 ms Normal sinus rhythm RSR' or QR pattern in V1 suggests right ventricular conduction delay Otherwise normal ECG No previous ECGs available Referred By: Generic ED Physician Electronically Signed By:KAYLYN NUNES MD
[2023-04-15 11:14] VITALS: BP 137/90; PULSE 87; RESP 18; TEMP 36.8; O2SAT 100; BMI 22.0
--- NOTE | 2023-04-15 11:17 | PC.NURSE ---
a&ox3, vss and up to date, nsr/sinus tachy on panel monitor. pt comes in today d/t new onset chest pain. pt states pain radiates to left upper extremity. pt also c/o numbness/tingling/n/v/headache/diaphoresis/sob. pt able to speak in full/clear sentences w/o difficultly. no sob/wob noted at this time. respirations even and unlabored. provider bedside assessing patient. call alcala placed within reach.
--- NOTE | 2023-04-15 11:24 | PC.NURSE ---
tech bedside obtaining labs.
--- NOTE | 2023-04-15 11:35 | PC.NURSE ---
pt currently ambulating to bathroom at this time w/o difficulty. pt has steady gait. no wob/sob shown at this time. will draw labs when pt returns.
--- NOTE | 2023-04-15 11:46 | PC.NURSE ---
labs obtained and sent to lab.
[2023-04-15 11:50] LABS: MANUAL DIFF FLAG NO
[2023-04-15 11:54] LABS: Basophils Percent Auto 0.4 % (0-2); Eosinophils Percent Auto 0.8 % (0-4); Hematocrit 41.5 % (37.0-47.0); Hemoglobin 14.1 g/dl (12.0-16.0); Imm Gran Abs Auto 0.01 X10*3/uL (0.00-0.03); Imm Gran Pct Auto 0.2 % (0.0-0.4); Lymphocytes Absolute Auto 1.5 X10*3/uL (1.2-4.9); Lymphocytes Percent Auto 27.7 % (20-40); Mean Corpuscular Hemoglobin 30.2 pg (27.0-33.0); Mean Corpuscular Volume 88.9 fL (80.0-98.0); Mean Platelet Volume 10.6 fL (9.4-12.3); Monocytes Absolute Auto 0.4 X10*3/uL (0.1-1.2); Monocytes Percent Auto 8.4 % (2-11); Neutrophils Absolute Auto 3.3 x10*3/uL (2.0-8.3); Neutrophils Percent Auto 62.5 % (45-73); Platelet Count 270 X10*3/uL (160-400); Red Blood Count 4.67 X10*6/uL (4.20-5.50); Red Cell Distribution Width 11.4 % (11.0-16.0); White Blood Count 5.2 X10*3/uL (4.8-10.8)
[2023-04-15 12:02] LABS: D Dimer High Sensitivity < 150 NG/ML
[2023-04-15 12:14] LABS: B Type Natriuretic Peptide < 10 pg/mL (<100)
[2023-04-15 12:17] LABS: Alanine Aminotransferase 15 U/L (0-31); Albumin Level 4.4 g/dL (3.5-5.0); Alkaline Phosphatase 43 U/L (39-117); Anion Gap 12 (12-20); Aspartate Amino Transferase 17 U/L (5-31); Bilirubin Direct 0.1 mg/dL (0.0-0.5); Bilirubin Total 0.3 mg/dL (0.0-1.0); Blood Urea Nitrogen 20 mg/dL (9-16); Calcium 9.7 mg/dL (8.4-10.2); Carbon Dioxide 20 mmol/L (22-29); Chloride 109 mmol/L (96-108); Estimated Glomerular Filt Rate > 60; Glucose Random 92 mg/dL (60-115); Lipase 14 U/L (8-78); Potassium 3.6 mmol/L (3.3-5.1); Sodium 137 mmol/L (135-145)
[2023-04-15 12:20] LABS: HCG Quantitative < 2 mIU/mL; Troponin-I High Sensitivity < 2.7 ng/L (<3.5-17.0)
[2023-04-15 12:33] VITALS: BP 114/75; PULSE 79; RESP 16; O2SAT 100
--- NOTE | 2023-04-15 12:33 | PC.NURSE ---
pt c/p 03/29 headache at this time and requesting pain medication - will notify provider.
--- NOTE | 2023-04-15 12:43 | PC.NURSE ---
urine sample obtained and sent to lab.
[2023-04-15 13:00] LABS: Appearance Urine Clear; Color Urine Yellow; Glucose Urine UA Negative (Negative); Leukocyte Esterase Urine Moderate (2+) (Negative); Nitrite Urine Negative (Negative); PH 7.5 (5.0-9.0); Specific Gravity - Urine 1.025 (1.005-1.025); UMIC TRIGGER UACC YES; Urine Blood Negative (Negative); Urine Ketones Negative (Negative); Urine Protein Negative (Neg-Trace)
[2023-04-15 13:09] LABS: Bacteria Urine None Seen (None Seen); Hyaline Casts Urine 0-2 /LPF (0-2); RBC Urine 0-2 /HPF (0-2); UACC Culture Trigger YES
--- NOTE | 2023-04-15 13:20 | PC.NURSE ---
per dr. roblero verbal order - 650mg PO tylenol ordered by this RN. repeat troponin level ordered as well.
[2023-04-15] MEDS: LORazepam 0.5 MG TABLET PO (13:40)
[2023-04-15] MEDS: Acetaminophen 325 MG TABLET 650 MG PO (13:40)
--- NOTE | 2023-04-15 13:51 | PC.NURSE ---
medication administered per provider order and repeat troponin sent to lab. call alcala placed within reach.
[2023-04-15 14:00] VITALS: BP 100/72; PULSE 79; RESP 16; O2SAT 100
--- NOTE | 2023-04-15 14:13 | ED.CHESTPAIN ---
HPI - Chest Pain General Chief Complaint: Chest Pain Stated Complaint: Chest pain, numbness left arm Time Seen by Provider: 04/15/23 11:03 History of Present Illness HPI narrative: Patient is a 38-year-old female presents today with having chest pain that is been ongoing since yesterday it is pretty constant it is mid chest it goes to the arm patient denies any history of being on control pills. No history of blood clots in the past no long distance travel no leg swelling no history of diabetes, hypertension, high cholesterol, smoking, [place]. No family history of coronary artery disease. No risk stratification done in the past. Complaining of pain that is in the chest. Patient been under some stress in her life. No fever no chills. No diaphoresis. The pain sometimes goes to the shoulder sometimes worse with deep breath patient has nonspecific tingling. She is from home Related Data Previous Rx's Medication Instructions Recorded ketorolac 10 mg tablet 10 mg PO Q8H #10 tabs 01/22/21 ondansetron 4 mg disintegrating 4 mg PO Q6H PRN nausea and 01/22/21 tablet vomiting #10 tabs ketorolac 10 mg tablet 10 mg PO TID PRN pain 5 days #15 02/02/21 tabs ondansetron HCl 4 mg tablet 4 mg PO Q8H PRN nausea and 02/02/21 (Zofran) vomiting #10 tabs Allergies Allergy/AdvReac Type Severity Reaction Status Date / Time No Known Allergies Allergy Verified 04/15/23 11:14 Review of Systems Review of Systems: Positive chest pain Yes all other systems are reviewed and are negative PMFSH Past Medical History Medical History Patient denies medical problems Social History Social History Smoked in Last 30 Days: No Use of substances other than those prescribed or required for medical reasons: No Advance Directives: No Patient : No Physical Exam Vital Signs: Vital Signs: Last Vital Signs Temp 98.2 F 04/15/23 11:14 Pulse 79 04/15/23 12:33 Resp 16 04/15/23 12:33 BP 114/75 04/15/23 12:33 Pulse Ox 100 04/15/23 12:33 O2 Del Method Room Air 10/27/23 12:33 BMI result Body Mass Index 22.0 Appearance: Alert. Oriented X3. No acute distress. Eyes: Pupils equal, round and reactive to light. ENT: Pharynx normal. Neck: Normal inspection. Neck supple. No lymph nodes noted. No crepitus CVS: Normal heart rate and rhythm. Pulses normal. Normal S1 and S2 Respiratory: No respiratory distress. Breath sounds normal. No Wheezing. No rales Abdomen: Soft and nontender. No rigidity. No distention. good BS x4 Skin: Skin warm and dry. Normal skin color. Normal skin turgor. Extremities: No lower extremity edema. Neurovascular intact to all extremities. No Lacerations. No Rash Neuro: Oriented X 3. No motor deficit. No sensory deficit. Moving all extermities. No slurred speech Medications Administered Discontinued Medications Generic Name Dose Route Start Last Admin Trade Name Freq PRN Reason Stop Dose Admin Acetaminophen 650 mg 04/15/23 13:21 04/15/23 13:40 Acetaminophen 325 Mg Tablet PO 04/15/23 13:22 650 mg ONCE ONE Administration Lorazepam 0.5 mg 04/15/23 13:28 04/15/23 13:40 Lorazepam 0.5 Mg Tablet PO 04/15/23 13:29 0.5 mg ONCE ONE Administration Medical Decision Making Medical Decision Making [facility] Narrative: My interpretation of patient's EKG showed a sinus rhythm heart rate is 100 OH QRS QTC within normal limits is no acute ST segment elevation noted. Patient's chest pain not consistent with ACS with no significant cardiac risks 1st set of troponins are negative negative EKG will get a 2nd set troponin but her heart score is less than 3. Patient's chest x-ray by my interpretation showed no evidence of pneumonia no evidence of pneumothorax. Has no history of hypertension no history of smoking no family history of dissection. Is not consistent with dissection. Patient is 38 years old not on control pills. History not consistent with PE no consistent epic and PE risk factors. Patient's D-dimer is negative. Unlikely to have pulmonary emboli. Differential Diagnosis Differential Diagnoses: The differential diagnosis associated with the presentation includes Pneumonia pneumothorax dissection CAD PE Lab Data [facility] Lab Attestation statement: I reviewed the patient's lab results. 04/15/23 11:45 04/15/23 11:45 Labs: Lab Results 04/15/23 04/15/23 Range/Units 11:45 12:41 WBC 5.2 (4.8-10.8) X10*3/uL RBC 4.67 (4.20-5.50) X10*6/uL Hgb 14.1 (12.0-16.0) g/dl Hct 41.5 (37.0-47.0) % MCV 88.9 (80.0-98.0) fL MCH 30.2 (27.0-33.0) pg MCHC 34.0 (31.0-35.0) g/dl RDW 11.4 (11.0-16.0) % Plt Count 270 D (160-400) X10*3/uL MPV 10.6 (9.4-12.3) fL Immature Gran % (Auto) 0.2 (0.0-0.4) % Neut % (Auto) 62.5 (45-73) % Lymph % (Auto) 27.7 (20-40) % [place] % (Auto) 8.4 (2-11) % Eos % (Auto) 0.8 (0-4) % Baso % (Auto) 0.4 (0-2) % Lymph # (Auto) 1.5 (1.2-4.9) X10*3/uL [place] # (Auto) 0.4 (0.1-1.2) X10*3/uL Eos # (Auto) 0.0 (0.0-0.4) X10*3/uL Baso # (Auto) 0.0 (0.0-0.2) X10*3/uL Abs Immat Gran (auto) 0.01 (0.00-0.03) X10*3/uL Absolute Neuts (auto) 3.3 (2.0-8.3) x10*3/uL Absolute Nucleated RBC 0.000 (0.0-0.012) X10*3/uL Nucleated RBC % (auto) 0.0 (0.0-0.2) /100WBC D-Dimer High Sensitivty < 150 NG/ML Sodium 137 (135-145) mmol/L Potassium 3.6 (3.3-5.1) mmol/L Chloride 109 H (96-108) mmol/L Carbon Dioxide 20 L (22-29) mmol/L Anion Gap 12 (12-20) BUN 20 H (9-16) mg/dL Creatinine 0.71 (0.5-1.4) mg/dL Estim Creat Clear Calc 91.0 Estimated GFR > 60 Random Glucose 92 (60-115) mg/dL Calcium 9.7 (8.4-10.2) mg/dL Total Bilirubin 0.3 (0.0-1.0) mg/dL Direct Bilirubin 0.1 (0.0-0.5) mg/dL AST 17 (5-31) U/L ALT 15 (0-31) U/L Alkaline Phosphatase 43 (39-117) U/L Troponin I High Sens < 2.7 (<3.5-17.0) ng/L B-Natriuretic Peptide < 10 (<100) pg/mL Total Protein 8.0 (6.5-8.0) g/dL Albumin 4.4 (3.5-5.0) g/dL Lipase 14 (8-78) U/L Beta HCG, Quant < 2 mIU/mL Urine Color Yellow Urine Appearance Clear Urine pH 7.5 (5.0-9.0) Ur Specific [place] 1.025 (1.005-1.025) Urine Protein Negative (Neg-Trace) mg/dL Urine Glucose (UA) Negative (Negative) mg/dL Urine Ketones Negative (Negative) mg/dL Urine Blood Negative (Negative) Urine Nitrite Negative (Negative) Ur Leukocyte Esterase Moderate (2+) H (Negative) Urine RBC 0-2 (0-2) /HPF Urine WBC 6-10 H (0-5) /HPF Ur Squamous Epith Cells 6-10 (0-2) /HPF Urine Bacteria None Seen (None Seen) Hyaline Casts 0-2 (0-2) /LPF Urine Yeast Present Independent Interpretation I performed an independent interpretation of an: EKG Interpretation: My interpretation patient's EKG showed a sinus rhythm heart rate is 100 OH QRS QTC within normal limits is no acute ST segment elevation Radiology Impression Discussion of test interpretation with radiology: I have reviewed the radiologist's reading. External Record Review No significant old records here at [facility] Discharge Plan Discharge Clinical Impression: Chest pain Prescriptions: No Action ondansetron 4 mg tablet,disintegrating 4 mg PO Q6H PRN (Reason: nausea and vomiting) Qty: 10 0RF ketorolac 10 mg tablet 10 mg PO Q8H Qty: 10 0RF Rx Instructions: received first dose in ed ondansetron HCl [Zofran] 4 mg tablet 4 mg PO Q8H PRN (Reason: nausea and vomiting) Qty: 10 0RF ketorolac 10 mg tablet 10 mg PO TID PRN (Reason: pain) 5 Days Qty: 15 0RF
[2023-04-15 15:23] VITALS: BP 116/79; PULSE 69; RESP 21; TEMP 36.8; O2SAT 99
[2023-04-15 16:24] LABS: Troponin-I High Sensitivity < 2.7 ng/L (<3.5-17.0)
[2023-04-15] MEDS: Ibuprofen 400 MG TABLET PO (16:59)
[2023-04-15 18:06] VITALS: BP 129/85; PULSE 78; RESP 16; O2SAT 97
--- NOTE | 2023-04-15 20:37 | PC.NURSE ---
this rn assumed care of pt. pt a&Ox3. respirations even and unlabored, lung sounds clear bilaterally. pt denies pain at this time, resting comfortably at this time.
[2023-04-15] MEDS: iohexoL 350 MG/ML 100 ML INFUS..BTL IV (20:40)
[2023-04-15 21:58] VITALS: BP 137/70; PULSE 90; RESP 20; TEMP 36.4; O2SAT 100
== END 2023-04-15 22:54 | disposition home or self-care (01) ==
PROVIDERS: Emergency Medicine Emergency Medical Services; Emergency Provider Emergency Medicine Emergency Medical Services
DX: R07.9 Chest pain, unspecified (principal); R06.02 Shortness of breath; R00.0 Tachycardia, unspecified
CPT/HCPCS: 36410; 36415; 71045; 71275; 80048; 80076; 81001; 83690; 83880; 84484; 84702; 85025; 85379; 87086; 93005; 99284; 99285; Q9967

== ENCOUNTER 2023-04-19 11:00 | Emergency (ER) | payer OTHER, SELFPAY ==
[2023-04-19 11:26] VITALS: BP 120/81; PULSE 91; RESP 18; TEMP 36.4; O2SAT 100; BMI 22.5
--- NOTE | 2023-04-19 11:27 | ED_ITS ---
<Statement entered by Ministerio Mendoza MD - 04/19/23 20:54> Additional note was started in triage. See my note for full hx details HPI - General Adult General Chief complaint: Recheck/Abnormal Lab/Rx Stated complaint: Multiple Complaints Sent by [employer] [place] Medications Medication Instructions Recorded Confirmed cholecalciferol (vitamin D3) 50 50 mcg PO DAILY 04/19/23 04/19/23 mcg (2,000 unit) tablet loratadine 10 mg tablet (Claritin) 10 mg PO DAILY 04/19/23 04/19/23 tizanidine 4 mg tablet 4 mg PO Q8H PRN muscle spasm 04/19/23 04/19/23 Allergies Allergy/AdvReac Type Severity Reaction Status Date / Time No Known Allergies Allergy Verified 04/15/23 11:14 [facility] Past Medical History Medical History Patient denies medical problems Social History Social History Smoked in Last 30 Days: No Advance Directives: No Physical Exam ED Vital Signs: Vital Signs - 24 hr 04/19/23 11:26 04/19/23 15:30 04/19/23 15:52 Temperature 97.5 F 98 F 98.2 F Pulse Rate 91 65 65 Respiratory Rate 18 16 16 Blood Pressure 120/81 116/76 121/80 Pulse Oximetry 100 97 98 Oxygen Delivery Method Room Air Room Air Room Air BMI result Body Mass Index 22.5 Course Course Course Narrative: RME: 38yo F w/no sig PMHx c/o sent in by PCP to check her thyroid. Patient admits to palpitations and SOB, denies CP at present. Patient was seen in our ED on 04/15/23 for CP/similar sx, had negative w/u including CTA for PE. Admits sx are improved since Tuesday except for SOB. Patient Rx Holter Moitor by PCP which she will pickup tomorrow EKG, Labs ordered Full HPI, ROS and PE to be performed by primary ED provider. Medical Decision Making Lab Data 04/19/23 11:50 04/19/23 11:50 Labs: Lab Results 04/19/23 Range/Units 11:50 WBC 5.5 (4.8-10.8) X10*3/uL RBC 4.54 (4.20-5.50) X10*6/uL Hgb 13.5 (12.0-16.0) g/dl Hct 39.8 (37.0-47.0) % MCV 87.7 (80.0-98.0) fL MCH 29.7 (27.0-33.0) pg MCHC 33.9 (31.0-35.0) g/dl RDW 11.3 (11.0-16.0) % Plt Count 272 (160-400) X10*3/uL MPV 10.4 (9.4-12.3) fL Immature Gran % (Auto) 0.2 (0.0-0.4) % Neut % (Auto) 60.1 (45-73) % Lymph % (Auto) 30.8 (20-40) % [place] % (Auto) 7.9 (2-11) % Eos % (Auto) 0.6 (0-4) % Baso % (Auto) 0.4 (0-2) % Lymph # (Auto) 1.7 (1.2-4.9) X10*3/uL [place] # (Auto) 0.4 (0.1-1.2) X10*3/uL Eos # (Auto) 0.0 (0.0-0.4) X10*3/uL Baso # (Auto) 0.0 (0.0-0.2) X10*3/uL Abs Immat Gran (auto) 0.01 (0.00-0.03) X10*3/uL Absolute Neuts (auto) 3.3 (2.0-8.3) x10*3/uL Absolute Nucleated RBC 0.000 (0.0-0.012) X10*3/uL Nucleated RBC % (auto) 0.0 (0.0-0.2) /100WBC Sodium 137 (135-145) mmol/L Potassium 4.5 D (3.3-5.1) mmol/L Chloride 106 (96-108) mmol/L Carbon Dioxide 22 (22-29) mmol/L Anion Gap 14 (12-20) BUN 12 (9-16) mg/dL Creatinine 0.80 (0.5-1.4) mg/dL Estim Creat Clear Calc 80.7 Estimated GFR > 60 Random Glucose 97 (60-115) mg/dL Calcium 10.0 (8.4-10.2) mg/dL Magnesium 2.1 (1.6-2.6) mg/dL Total Bilirubin 0.6 (0.0-1.0) mg/dL Direct Bilirubin 0.2 (0.0-0.5) mg/dL AST 18 (5-31) U/L ALT 13 (0-31) U/L Alkaline Phosphatase 45 (39-117) U/L Troponin I High Sens < 2.7 (<3.5-17.0) ng/L Total Protein 8.2 H (6.5-8.0) g/dL Albumin 4.6 (3.5-5.0) g/dL TSH 2.06 (0.32-4.0) uIU/mL COVID-19 (IVET) Negative (Negative) COVID-19 Clin Com See Note Discharge Plan Discharge Clinical Impression: Encounter for wellness examination Patient Disposition: Home, Self-Care Instructions: Hypothyroidism (ED) Additional Instructions: Your seen emergency room for abnormal lab work. However repeated TSH in the ED is 2.06, in consideration of the fact that right now he does not have any symptoms with wanting Q require admission and we recommend follow-up in the next few days with her primary care physician to repeat your blood work. Return to the emergency room if you experience any lightheadedness, increased sleepiness, shortness of breath, fever. Prescriptions: No Action tizanidine 4 mg tablet 4 mg PO Q8H PRN (Reason: muscle spasm) loratadine [Claritin] 10 mg Tablet 10 mg PO DAILY cholecalciferol (vitamin D3) 50 mcg (2,000 unit) Tablet 50 mcg PO DAILY Interventions: ED Discharge Assessment Last Done: 04/19/23 14:57 Discharge Date/Time: 04/19/23 17:10
--- NOTE | 2023-04-19 11:30 | ECG_ITS ---
Test Reason : cp Blood Pressure : / mmHG Vent. Rate : 087 BPM Atrial Rate : 087 BPM P-R Int : 142 ms QRS Dur : 080 ms QT Int : 378 ms P-R-T Axes : 055 001 014 degrees QTc Int : 454 ms Normal sinus rhythm Low voltage QRS RSR' or QR pattern in V1 suggests right ventricular conduction delay Borderline ECG When compared with ECG of 15-APR-2023 11:05, No significant change was found Referred By: Isidra Hill Electronically Signed By:KAYLYN NUNES MD
[2023-04-19 11:56] LABS: MANUAL DIFF FLAG NO
[2023-04-19 11:58] LABS: Basophils Percent Auto 0.4 % (0-2); Eosinophils Percent Auto 0.6 % (0-4); Hematocrit 39.8 % (37.0-47.0); Hemoglobin 13.5 g/dl (12.0-16.0); Imm Gran Abs Auto 0.01 X10*3/uL (0.00-0.03); Imm Gran Pct Auto 0.2 % (0.0-0.4); Lymphocytes Absolute Auto 1.7 X10*3/uL (1.2-4.9); Lymphocytes Percent Auto 30.8 % (20-40); Mean Corpuscular HGB Conc 33.9 g/dl (31.0-35.0); Mean Corpuscular Hemoglobin 29.7 pg (27.0-33.0); Mean Corpuscular Volume 87.7 fL (80.0-98.0); Mean Platelet Volume 10.4 fL (9.4-12.3); Monocytes Absolute Auto 0.4 X10*3/uL (0.1-1.2); Monocytes Percent Auto 7.9 % (2-11); Neutrophils Absolute Auto 3.3 x10*3/uL (2.0-8.3); Neutrophils Percent Auto 60.1 % (45-73); Platelet Count 272 X10*3/uL (160-400); Red Blood Count 4.54 X10*6/uL (4.20-5.50); Red Cell Distribution Width 11.3 % (11.0-16.0); White Blood Count 5.5 X10*3/uL (4.8-10.8)
[2023-04-19 12:17] LABS: COVID-19 Test Negative (Negative); IDNOW Serial# BCCEAD1C
[2023-04-19 12:22] LABS: Alanine Aminotransferase 13 U/L (0-31); Albumin Level 4.6 g/dL (3.5-5.0); Alkaline Phosphatase 45 U/L (39-117); Anion Gap 14 (12-20); Aspartate Amino Transferase 18 U/L (5-31); Bilirubin Direct 0.2 mg/dL (0.0-0.5); Bilirubin Total 0.6 mg/dL (0.0-1.0); Blood Urea Nitrogen 12 mg/dL (9-16); Carbon Dioxide 22 mmol/L (22-29); Chloride 106 mmol/L (96-108); Creatinine Clr Calc Pharmacy 80.7; Estimated Glomerular Filt Rate > 60; Glucose Random 97 mg/dL (60-115); Magnesium 2.1 mg/dL (1.6-2.6); Potassium 4.5 mmol/L (3.3-5.1); Sodium 137 mmol/L (135-145); Total Protein 8.2 g/dL (6.5-8.0)
[2023-04-19 12:36] LABS: TSH reflex Free T4 2.06 uIU/mL (0.32-4.0)
--- NOTE | 2023-04-19 14:46 | PHA.MEDREC ---
Pharmacy Consult ? Medication Reconciliation Pharmacy has completed the medication reconciliation.MED REC COMPLETE USING LIST PROVIDED FROM [facility] DATED 04/19/23
[2023-04-19 15:30] VITALS: BP 116/76; PULSE 65; RESP 16; TEMP 36.6; O2SAT 97
--- NOTE | 2023-04-19 15:30 | MHC.EDTECH ---
This pct assumed care of pt at this time ,vitals taken ,Patient waiting to see Provider .
[2023-04-19 15:40] LABS: Troponin-I High Sensitivity < 2.7 ng/L (<3.5-17.0)
[2023-04-19 15:52] VITALS: BP 121/80; PULSE 65; RESP 16; TEMP 36.8; O2SAT 98
--- NOTE | 2023-04-19 15:54 | ED_ITS ---
HPI - General Adult General Chief complaint: Recheck/Abnormal Lab/Rx Stated complaint: Multiple Complaints Sent by [employer] Source: patient and other (PCP note) Limitations: no limitations History of Present Illness HPI narrative: 38 years old man with no significant past medical history, presents emergency room for abnormal lab work as an outpatient. Patient is undergoing workup for hypothyroidism and outpatient lab work showed motor deficits and elevated have T3. Patient has been complaining of approximately 10 kg weight gain, to denies dominance cold, depression, tachycardia, presyncope or lighthaedness. patient was seen in the emergency room 2 days ago for chest pain, the time air EKG was within normal limits, her D-dimer was negative and patient was discharged home. Patient reports mild chest discomfort today greatly improved from last visit, denies shortness of breath, chills or fever or cough. Denies abdominal pain nausea or vomiting. Patient denies constipation or diarrhea. Related Data Home Medications Medication Instructions Recorded Confirmed cholecalciferol (vitamin D3) 50 50 mcg PO DAILY 04/19/23 04/19/23 mcg (2,000 unit) tablet loratadine 10 mg tablet (Claritin) 10 mg PO DAILY 04/19/23 04/19/23 tizanidine 4 mg tablet 4 mg PO Q8H PRN muscle spasm 04/19/23 04/19/23 Allergies Allergy/AdvReac Type Severity Reaction Status Date / Time No Known Allergies Allergy Verified 04/15/23 11:14 Review of Systems 2 Review of Systems: Yes all other systems are reviewed and are negative [facility] Past Medical History Medical History Patient denies medical problems Social History Social History Smoked in Last 30 Days: No Advance Directives: No Physical Exam ED Vital Signs: Vital Signs - 24 hr 04/19/23 11:26 04/19/23 15:30 04/19/23 15:52 Temperature 97.5 F 98 F 98.2 F Pulse Rate 91 65 65 Respiratory Rate 18 16 16 Blood Pressure 120/81 116/76 121/80 Pulse Oximetry 100 97 98 Oxygen Delivery Method Room Air Room Air Room Air BMI result Body Mass Index 22.5 Const Other: General: Alert, Not in Distress Skin: No rash, warm HEENT: Atraumatic, No Exudate or Pharyngeal Erythema Resp: Normal Breath sounds bilaterally Cardio: Regular rate and Rhythm, Normal S1, S2 ABD: Abd soft, non tender, no guarding or rebound. Normal Bowel sounds. : No cva tenderness Neuro: Alert, oriented x4, PERRL Strenght 5/5 on all extremities Sensation is preserved in both lower and upper extremities Index to nose: normal Cranial Nerves II-XII grossly intact No dysarthria, or aphasia No neglet. Visual barajas are normal bilaterally Psych: Cooperative, NO SI Course Reevaluation(s) Reevaluation #1: Spoke with nurse at PCP office. PCP is not available at this time. I discussed patient results with her and asked if she can inform PCP. At this time patient does not have symptoms concerning for myxedema coma or severe hypothyroidism. Admitting she is obese started on levothyroxine right now but it is important for her to repeat blood work. I recommended patient to follow up with PCP in couple of days Return precautions discussed with patient including symptoms of myxedema and severe hyperthyroidism. Patient understands and agrees with plan to be discharged. Time: 16:46 Medical Decision Making Medical Decision Making [facility] Narrative: 38 years old presenting to the emergency room for abnormal lab work at the primary care office. According to primary care note patient TSH was 0.05, T3-7 111 and a T4 1.08 however repeated lab work in triage showed normal TSH. Patient is not having any symptoms consistent with the severe hypothyroidism and myxedema. The only review of system consistent with the hypothyroidism is generalized fatigue and weight gain over the past few months. Otherwise she is hemodynamically stable and I do not think she requires admission. Will try to contact PCP Admission/Observation Consideration of admission/observation: Escalation of care including admission/observation considered Consult Healthcare Provider Management of the patient was discussed with: Primary Care Provider Lab Data [facility] Lab Attestation statement: I reviewed the patient's lab results. Patient TSH is normal today 04/19/23 11:50 04/19/23 11:50 Labs: Lab Results 04/19/23 Range/Units 11:50 WBC 5.5 (4.8-10.8) X10*3/uL RBC 4.54 (4.20-5.50) X10*6/uL Hgb 13.5 (12.0-16.0) g/dl Hct 39.8 (37.0-47.0) % MCV 87.7 (80.0-98.0) fL MCH 29.7 (27.0-33.0) pg MCHC 33.9 (31.0-35.0) g/dl RDW 11.3 (11.0-16.0) % Plt Count 272 (160-400) X10*3/uL MPV 10.4 (9.4-12.3) fL Immature Gran % (Auto) 0.2 (0.0-0.4) % Neut % (Auto) 60.1 (45-73) % Lymph % (Auto) 30.8 (20-40) % [place] % (Auto) 7.9 (2-11) % Eos % (Auto) 0.6 (0-4) % Baso % (Auto) 0.4 (0-2) % Lymph # (Auto) 1.7 (1.2-4.9) X10*3/uL [place] # (Auto) 0.4 (0.1-1.2) X10*3/uL Eos # (Auto) 0.0 (0.0-0.4) X10*3/uL Baso # (Auto) 0.0 (0.0-0.2) X10*3/uL Abs Immat Gran (auto) 0.01 (0.00-0.03) X10*3/uL Absolute Neuts (auto) 3.3 (2.0-8.3) x10*3/uL Absolute Nucleated RBC 0.000 (0.0-0.012) X10*3/uL Nucleated RBC % (auto) 0.0 (0.0-0.2) /100WBC Sodium 137 (135-145) mmol/L Potassium 4.5 D (3.3-5.1) mmol/L Chloride 106 (96-108) mmol/L Carbon Dioxide 22 (22-29) mmol/L Anion Gap 14 (12-20) BUN 12 (9-16) mg/dL Creatinine 0.80 (0.5-1.4) mg/dL Estim Creat Clear Calc 80.7 Estimated GFR > 60 Random Glucose 97 (60-115) mg/dL Calcium 10.0 (8.4-10.2) mg/dL Magnesium 2.1 (1.6-2.6) mg/dL Total Bilirubin 0.6 (0.0-1.0) mg/dL Direct Bilirubin 0.2 (0.0-0.5) mg/dL AST 18 (5-31) U/L ALT 13 (0-31) U/L Alkaline Phosphatase 45 (39-117) U/L Troponin I High Sens < 2.7 (<3.5-17.0) ng/L Total Protein 8.2 H (6.5-8.0) g/dL Albumin 4.6 (3.5-5.0) g/dL TSH 2.06 (0.32-4.0) uIU/mL COVID-19 (IVET) Negative (Negative) COVID-19 Clin Com See Note Independent Interpretation I performed an independent interpretation of an: EKG (Sinus bradycardia) External Record Review External record reviewed: Prior outpatient labs (LOW TSH , elevated FT3) Discharge Plan Discharge Clinical Impression: Encounter for wellness examination Patient Disposition: Home, Self-Care Instructions: Hypothyroidism (ED) Additional Instructions: Your seen emergency room for abnormal lab work. However repeated TSH in the ED is 2.06, in consideration of the fact that right now he does not have any symptoms with wanting Q require admission and we recommend follow-up in the next few days with her primary care physician to repeat your blood work. Return to the emergency room if you experience any lightheadedness, increased sleepiness, shortness of breath, fever. Prescriptions: No Action tizanidine 4 mg tablet 4 mg PO Q8H PRN (Reason: muscle spasm) loratadine [Claritin] 10 mg Tablet 10 mg PO DAILY cholecalciferol (vitamin D3) 50 mcg (2,000 unit) Tablet 50 mcg PO DAILY Interventions: ED Discharge Assessment Last Done: 04/19/23 14:57 Discharge Date/Time: 04/19/23 14:58
--- NOTE | 2023-04-19 16:08 | PC.NURSE ---
patient a&ox3, vss, pt stated can the doctor come see me, I need to be discharged by 5pm to garbage pick [place] this nurse advised the patient that a provider will be in shortly to see her, provider was also notified of the patients request.
== END 2023-04-19 17:10 | disposition home or self-care (01) ==
PROVIDERS: Physician Assistant; Emergency Provider Student in an Organized Health Care Education/Training Program; PCP Internal Medicine
DX: R00.2 Palpitations (principal); R06.02 Shortness of breath; Z11.52 Encounter for screening for COVID-19
CPT/HCPCS: 36415; 80048; 80076; 83735; 84443; 84484; 85025; 87635; 93005; 99283; 99284

== ENCOUNTER 2024-08-17 06:10 | Emergency (ER) | payer OTHER, SELFPAY ==
[2024-08-17 06:37] VITALS: BP 121/77; PULSE 70; RESP 16; TEMP 36.9; O2SAT 98; BMI 22.0
[2024-08-17 07:05] LABS: MANUAL DIFF FLAG NO
[2024-08-17 07:07] LABS: Basophils Percent Auto 0.5 % (0-2); Eosinophils Absolute Auto 0.1 X10*3/uL (0.0-0.4); Hematocrit 40.3 % (37.0-47.0); Hemoglobin 13.6 g/dl (12.0-16.0); Imm Gran Abs Auto 0.01 X10*3/uL (0.00-0.03); Imm Gran Pct Auto 0.2 % (0.0-0.4); Lymphocytes Absolute Auto 1.4 X10*3/uL (1.2-4.9); Lymphocytes Percent Auto 25.9 % (20-40); Mean Corpuscular HGB Conc 33.7 g/dl (31.0-35.0); Mean Corpuscular Hemoglobin 30.6 pg (27.0-33.0); Mean Corpuscular Volume 90.6 fL (80.0-98.0); Monocytes Absolute Auto 0.5 X10*3/uL (0.1-1.2); Monocytes Percent Auto 8.9 % (2-11); Neutrophils Absolute Auto 3.4 x10*3/uL (2.0-8.3); Neutrophils Percent Auto 62.5 % (45-73); Platelet Count 257 X10*3/uL (160-400); Red Blood Count 4.45 X10*6/uL (4.20-5.50); Red Cell Distribution Width 11.6 % (11.0-16.0); White Blood Count 5.5 X10*3/uL (4.8-10.8)
[2024-08-17 07:09] LABS: Appearance Urine Clear; Color Urine Yellow; Glucose Urine UA Negative (Negative); Leukocyte Esterase Urine Negative (Negative); Nitrite Urine Negative (Negative); PH 5.5 (5.0-9.0); Specific Gravity - Urine 1.025 (1.005-1.025); Urine Blood Negative (Negative); Urine Ketones Negative (Negative); Urine Protein Negative (Neg-Trace)
[2024-08-17 07:11] LABS: UPreg QC Valid YES; Urine Pregnancy NEGATIVE (NEGATIVE)
[2024-08-17 07:18] LABS: Anion Gap 11 (12-20); Blood Urea Nitrogen 18 mg/dL (9-16); Calcium 9.4 mg/dL (8.4-10.2); Carbon Dioxide 26 mmol/L (22-29); Chloride 106 mmol/L (96-108); Creatinine Clr Calc Pharmacy 91.3; Estimated Glomerular Filt Rate > 60; Glucose Random 93 mg/dL (60-115); Sodium 139 mmol/L (135-145)
--- OUTSIDE RECORDS SUMMARY | 2024-08-17 07:59 | XMS_ITS | Encounter Summary ---
Author Organization [facility] Address [address] [place] [address] Care Team Providers Care Hog Tender Name Role Phone Sarahi Alvarez MD Primary Care Provider [phone] Reason for Visit * Reason Comments Depression GERD Encounter Details Date Type Department Care Team ([facility] Contact Info) Description 08/09/2024 9:30 AM EST Office Visit Adult Medicine [facility] [address] [place] [phone] Sarahi Alvarez MD [address] [place] [address] Angy's thyroiditis (Primary Dx); Vitamin D deficiency; Other depression; Primary insomnia; Acute right-sided low back pain with right-sided sciatica Social History Tobacco Use Types Packs/Day Years Used Date Smoking Tobacco: Former Smokeless Tobacco: Never Tobacco Cessation:Counseling Given: Not Answered Alcohol Use Standard Drinks/Week Comments Not Currently 0 (1 standard drink = 0.6 oz pur e alcohol) Housing Instability Answer Date Recorde d Are you worried that in the next 2 months you may not have stable housing? No 08/08/2024 Food Access & Nutrition Answer Date Rec orded Do you have access to a vari ety of food including fruits and vegetables? No 08/08/2024 Access to Healthcare Answer Date Record ed Within the last 3 months, ho w many times did you visit the emergency department for your medical care? 0 08/08/2024 Health Literacy Answer Date Recorded How often do you need to hav e someone help you when you read instructions, pamphlets, or other written material from your doctor or pharmacy? Never 08/08/2024 Caregiver: How often do you need to have someone help you when you read instructions, pamphlets, or other written material from your doctor or pharmacy? Not on file 08/08/2024 Financial Risk Answer Date Recorded How hard is it for you to pa y for the very basics like food, housing, medical care, and air conditioning / heating? Not asked 08/08/2024 Transportation Answer Date Recorded Has the lack of transportati on kept you from meetings, work, or from getting things needed for daily living? No Has the lack of transportati on kept you from medical appointments or from getting medications? No 08/08/2024 Social Isolation Answer Date Recorded How often do you feel lonely or isolated from th ose around you? Never 08/08/2024 Food Risk Answer Date Recorded Within the past 12 months we worried whether our food would run out before we got money to buy more. Not asked 08/08/2024 Within the past 12 months th e food we bought just didn't last and we didn't have money to get more. Never true 08/08/2024 Dependent Care Answer Date Recorded Do you need help finding or paying for care for your loved ones. For example, child therapist or elderly care for an older adult? No 08/08/2024 Education Answer Date Recorded Do you think completing more education or training, like finishing a GED, going to college, or learning a trade, would be helpful for you? N/A 08/08/2024 Employment and Income Answer Date Recor ded During the last four weeks, have you been actively looking for work? No 08/08/2024 Living Situation Answer Date Recorded What is your living situation? 0 08/08/2024 Comments Unknown Sex and Gender Information Value Date Recorded Sex Assigned at Not on file Legal Sex Female 12:12 PM EDT Gender Identity Female 07/28/2024 8:45 AM EST Sexual Orientation Not on file documented as of this encounter Last Filed Vital Signs Vital Sign Reading Time Taken Comments Blood Pressure 112/68 08/09/2024 9:28 AM EST Pulse 85 08/09/2024 9:28 AM EST Temperature 36.7 ??C (98.1 ??F) 08/09/2024 9:28 AM ES T Respiratory Rate 14 08/09/2024 9:28 AM EST Oxygen Saturation 98% 08/09/2024 9:28 AM EST Inhaled Oxygen Concentration - - Weight 58.5 kg (128 lb 14.4 oz) 08/09/2024 9:28 AM EST Height 162.6 cm (5' 4 ) 08/09/2024 9:28 AM EST Body Mass Index 22.13 08/09/2024 9:28 AM EST documented in this encounter Ordered Prescriptions Prescription Sig Dispense Quantity Refills Last Filled Start Date End Date PARoxetine (PAXIL) 10 mg tablet Take 1 tablet (10 mg total) by mouth at bedtime. 90 each 1 08/09/2024 documented in this encounter Progress Notes * Kendy Beltrán MA - 08/09/2024 9:30 AM EST INFLUENZA VACCINE The patient acknowledges that they will be receiving the Influenza (Flu) vaccine today: yes Flu vaccine formulation is: Flucelvax (preservative free): Patient denies allergy to previous flu vaccine. yes Immunization tab reviewed: Patient acknowledges they have NOT received a flu vaccine for the . yes Denies history of Guillain-Bremen Syndrome (severe muscle weakness). yes Acknowledges reviewing the VIS Seasonal Flu (copy made available). yes Patient Denies moderate or severe illness or fever of >100 degrees F. yes Agrees to wait in the office/car for 20 minutes after receiving the influenza injection. yes No restriction for Influenza vaccine administered IM See Imm/Inj tab. Electronically signed by: Kendy Beltrán MA 08/09/2024 9:44 AM EST * Sarahi Alvarez MD - 08/09/2024 9:30 AM EST Chief Complaint: Chief Complaint Patient presents with Depression GERD IDENTIFIER: Alicia Tejeda is a 39 y.o. old female HPI She comes for evaluation with Angy's thyroiditis, depression and insomnia, vitamin D deficiency. She notes that she is still having difficulty sleeping at night and does not feel the trazodone is helping. She does work 17-hour days. She has tried melatonin which has not helped. She feels theremay be some component of depression as well. She notes that for several days she is having pain in her right hip area which has been awakening her at night, she is using Tylenol which does not help, discomfort has been radiating down her leg. She denies any trauma or episodes of injury. ROS: General: No malaise, significant weight loss or fever Respiratory: No cough, wheezing or shortness of breath Cardiovascular: No chest pain, palpitations, no orthopnea Musc as noted Past Medical History: Patient Active Problem List Diagnosis Date Noted GERD (gastroesophageal reflux disease) 08/30/2023 Angy's thyroiditis 06/17/2023 Endometriosis 07/23/2022 Left ovarian cyst 06/28/2022 Depression 05/04/2022 Vitamin D deficiency 05/04/2022 Surgical History: Past Surgical History: Procedure Laterality Date ESOPHAGOGASTRODUODENOSCOPY 04/29/2022 tiny superficial erosions, biopsy + H.pylori OTHER SURGICAL HISTORY DILATION & CURETTAGE CERVICAL STUMP OVARIAN CYST REMOVAL : laparoscopic x 6 per pt, she may have endometriosis Family History: Family History Problem Relation Name Age of Onset Other cancer Mother skin cancer in her umbilicus Bladder Cancer Father diagnosed 2020 Depression Sister x2 Breast cancer Father's side aunt 45 Ovarian cancer Neg Hx Uterine cancer Neg Hx Social History: Social History Tobacco Use Smoking status: Former Smokeless tobacco: Never Substance Use Topics Alcohol use: Not Currently Allergies: Avocado, Grape seed, Nut - unspecified, Pumpkin seed, and [place] oil Medications: Outpatient Medications Marked as Taking for the 08/09/24 encounter (Office Visit) with Sarahi Alvarez MD Medication Sig Dispense Refill cholecalciferol (VITAMIN D-3) 50 mcg (2,000 unit) tablet Take 1 tablet (2,000 Units total) by mouth1 (one) time each day. EPINEPHrine (EpiPen 2-Conrad) 0.3 mg/0.3 mL injection Inject 0.3 mL (0.3 mg total) into the thigh. loratadine (CLARITIN) 10 mg tablet Take 1 tablet (10 mg total) by mouth. tiZANidine (ZANAFLEX) 4 mg tablet Take 1 tablet (4 mg total) by mouth every 8 (eight) hours if needed. traZODone (DESYREL) 50 mg tablet TAKE 1 TABLET BY MOUTH EVERYDAY AT BEDTIME 30 tablet 0 Medication Discontinued/Reordered: There are no discontinued medications. Vitals: Blood pressure 112/68, pulse 85, temperature 36.7 ??C (98.1 ??F), temperature source Temporal, resp. rate 14, height 1.626 m (64 ), weight 58.5 kg (128 lb 14.4 oz), last menstrual period 08/09/2024, SpO2 98%. Body mass index is 22.13 kg/m??.BMI is 18.5 to 24.9 (within the normal range) and will be followed Physical Exam: General: patient is in no acute distress. Neck supple without adenopathy, no thyromegaly. Lungs clear with auscultation. Heart: regular S1S2 without murmur, rub or gallop. Extremities without cyanosis, clubbing or edema. There is discomfort with palpation on the right over the SI joint. No discomfort with hip internal or external rotation or with palpation over the greater trochanteric bursa. Labs: Thyroid studies ordered Impression: 1. Angy's thyroiditis 2. Vitamin D deficiency 3. Other depression 4. Primary insomnia 5. Acute right-sided low back pain with right-sided sciatica Assessment and Plan: She will have repeat thyroid studies given the Angy's thyroiditis. She will continue on the trazodone for sleep and will try adding in paroxetine which may help for depression symptoms and also is mildly sedating could help with sleep. She will continue on the vitamin D replacement. We discussed that her present discomfort appears to be in the low back and SI joint. She will start on Aleve and warm soaks, Tylenol as needed as well as IcyHot or Biofreeze and return if her discomfort is not improving or is worsening. Myself and my colleagues have maintained a long-term, longitudinal relationship with this patient, overseeing care of chronic conditions including depression, insomnia, vitamin D deficiency, Angy's thyroiditis. This care relationship has significantly influenced my decision making and treatment plans during today's encounter. documented in this encounter Plan of Treatment Upcoming Encounters Date Type Department Care Team (Late st Contact Info) Description 09/17/2024 2:40 PM EDT Appointment Radiology Department - [address] [phone] 02/06/2025 9:45 AM EDT Office Visit Adult Medicine [address] [phone] Fiorella Avalos PA [address] [place], [place] documented as of this encounter Results * Thyroid stimulating hormone with reflex to free t4 and free t3 (08/09/2024 9:59 AM EST) TSH 2.14 0.40 - 4.00 mcIU/mL LAB CHEMISTRY METHOD 08/09/2024 12:58 PM EST [facility] Blood Venous blood specimen / Unknown Venipuncture / Unknown 08/09/2024 9:59 AM EST 08/09/2024 9:59 AM EST us Sarahi Alvarez MD LAB BLOOD ORDERABLES Final Resul t [facility] [address] [place] [address], documented in this encounter Visit Diagnoses Diagnosis Angy's thyroiditis- Primary Chronic lymphocytic thyroiditis Vitamin D deficiency Other depression Primary insomnia Persistent disorder of initiating or maintaining sleep Acute right-sided low back pain with right-sided sciatica Encounter for screening mammogram for breast cancer documented in this encounter Orders Immunization/Injection Count Last Ordered Date First Ordered Date INFLUENZA TRIVALENT, MDCK, 0 .5ML, PRESERVATIVE FREE (FLUCELVAX) 6MO AND OLDER 1 08/09/2024 documented in this encounter Additional Health Concerns Assessment Noted Time PHQ-9 Depression Total Score: 0 08/08/19 25 3:24 PM EST documented as of this encounter Care Teams Hog Tender Relationship Specialty Start Date End Date Sarahi Alvarez MD [address] [place] [address] PCP - General Internal Medicine 03/09/21 documented as of this encounter
--- OUTSIDE RECORDS SUMMARY | 2024-08-17 07:59 | XMS_ITS | Encounter Summary ---
Author Organization [facility] [address] Care Team Providers Care Extension Agent Name Role Phone Sarahi Alvarez MD Primary Care Provider [phone] Encounter Details Date Type Department Care Team (Late st Contact Info) Description 08/08/2024 Nurse Triage Adult Medicine [address] [phone] Linda Phillips, [place] Social History Tobacco Use Types Packs/Day Years Used Date Smoking Tobacco: Former Smokeless Tobacco: Never Alcohol Use Standard Drinks/Week Comments Not Currently [...] care for your loved ones. For example, vocational childcare teacher or elderly care for an older adult? [...] on file documented as of this encounter Progress Notes * Linda Phillips RN - 08/08/2024 11:21 AM EST An appointment was made for her to be seen in the office tomorrow at 9:[address] Hernandez in agreement with this plan. Reason for Disposition [1] Depression AND [2] getting worse (e.g., sleeping poorly, less able to do activities of daily living) Answer Assessment - Initial Assessment Questions 1. CONCERN: What happened that made you call today? Pt reporting depression since last summer. 2. DEPRESSION SYMPTOM SCREENING: How are you feeling overall? (e.g., decreased energy, increased sleeping or difficulty sleeping, difficulty concentrating, feelings of sadness, guilt, hopelessness,or worthlessness) She is reporting difficulty sleeping, decreased appetite 3. RISK OF HARM - SUICIDAL IDEATION: Do you ever have thoughts of hurting or killing yourself? (e.g., yes, no, no but preoccupation with thoughts about ) - INTENT: Do you have thoughts of hurting or killing yourself right NOW? (e.g., yes, no, N/A) - PLAN: Do you have a specific plan for how you would do this? (e.g., gun, knife, overdose, no plan, N/A) No. 4. RISK OF HARM - HOMICIDAL IDEATION: Do you ever have thoughts of hurting or killing someone else? (e.g., yes, no, no but preoccupation with thoughts about ) - INTENT: Do you have thoughts of hurting or killing someone right NOW? (e.g., yes, no, N/A) - PLAN: Do you have a specific plan for how you would do this? (e.g., gun, knife, no plan, N/A) No. 5. FUNCTIONAL IMPAIRMENT: How have things been going for you overall? Have you had more difficultythan usual doing your normal daily activities? (e.g., better, same, worse; self-care, school, work, interactions) She is having more difficulty completing her ADL's 6. SUPPORT: Who is with you now? Who do you live with? Do you have family or friends who you can talk to? She lives with her . He has cancer and she has to take care of him and their 2 kids age 18 and 16. 7. THERAPIST: Do you have a counselor or therapist? If Yes, ask: What is their name? No 8. STRESSORS: Has there been any new stress or recent changes in your life? She states her is sick, her father has cancer 9. ALCOHOL USE OR SUBSTANCE USE (DRUG USE): Do you drink alcohol or use any illegal drugs? No 10. OTHER: Do you have any other physical symptoms right now? (e.g., fever) She is reporting a daily headache rating 4/10 at this time. 11. : Is there any chance you are ? When was your last menstrual period? No. She currently has her menses. Protocols used: [id number] documented in this encounter Plan of Treatment Upcoming Encounters Date Type Department Care Team (Late st Contact Info) Description 09/17/2024 2:40 PM EDT Appointment Radiology Department - [address] [phone] 02/06/2025 9:45 AM EDT Office Visit Adult Medicine [address] [phone] Fiorella Avalos PA [address] [place] [address] documented as of this encounter Visit Diagnoses Not on filedocumented in this encounter Additional Health Concerns Assessment Noted Time PHQ-9 Depression Total Score: 0 08/08/19 25 3:24 PM EST documented as of this encounter Care Teams Extension Agent Relationship Specialty Start Date End Date Sarahi Alvarez MD [address] [place] [address] PCP - General Internal Medicine 03/09/21 documented as of this encounter
--- OUTSIDE RECORDS SUMMARY | 2024-08-17 07:59 | XMS_ITS | Clinical Summary ---
Author Organization [facility] Address [address] [place] [address] Care Team Providers Care Regional Sales Coordinator Name Role Phone Sarahi Alvarez MD Primary Care Provider [phone] Allergies Active Allergy Reactions Criticality Noted Date Comments Avocado Anaphylaxis,Hives High 04/27/2021 Grape Seed Anaphylaxis,Hives High 04/27/2021 Nut - Unspecified Anaphylaxis High 04/27/2021 Pumpkin Seed Anaphylaxis High 04/27/2021 [place] Oil Anaphylaxis,Hives High 04/27/2021 Medications cholecalciferol (VITAMIN D-3) 50 mcg (2,000 unit) tablet Take 1 tablet (2,000 Units total) by mouth 1 (one) time each day. 06/03/2023 Active EPINEPHrine (EpiPen 2-Conrad) 0.3 mg/0.3 mL injection Inject 0.3 mL (0.3 mg total) into the thigh. 04/27/2021 Active loratadine (CLARITIN) 10 mg tablet Take 1 tablet (10 mg total) by mouth. 04/11/2023 Active tiZANidine (ZANAFLEX) 4 mg tablet Take 1 tablet (4 mg total) by mouth every 8 (eight) hours if needed. 07/13/2023 Active traZODone (DESYREL) 50 mg tablet TAKE 1 TABLET BY MOUTH EVERYDAY AT BEDTIME 30 tablet 07/18/2024 Active PARoxetine (PAXIL) 10 mg tablet Take 1 tablet (10 mg total) by mouth at bedtime. 90 each 1 08/09/2024 Active Active Problems Problem Noted Date Diagnosed Date GERD (gastroesophageal reflux disease) Angy's thyroiditis 06/17/2023 Endometriosis 07/23/2022 Overview (08/08/2024): Left ovarian cyst 06/28/2022 Depression 05/04/2022 Vitamin D deficiency 05/04/2022 Encounters Date Type Department Care Team Description 08/09/2024 9:30 AM EST Office Visit Adult Medicine [address] [phone] Sarahi Alvarez MD Angy's thyroiditis (Primary Dx); Vitamin D deficiency; Other depression; Primary insomnia; Acute right-sided low back pain with right-sided sciatica 08/08/2024 Nurse Triage Adult Medicine [address] [phone] Linda Phillips RN from Last 3 Months Immunizations Name Administration Dates Next Due Influenza Quadravalent, MDCK , 0.5ml, preservative free (Flucelvax) 6mo and older 06/17/2023,04/01/2021 Influenza trivalent, MDCK, 0 .5mL, preservative free (Flucelvax) 6mo and older 08/09/2024 PPD Test 12/07/2016 Tdap Tetanus diptheria acell ular pertussis (Boostrix; Adacel) 7yo and older 04/01/2021 Surgical History Surgery Date Site/Laterality Comments OTHER SURGICAL HISTORY DILATION & CURETTAGE CERVICAL STUMP ESOPHAGOGASTRODUODENOSCOPY 04/29/2022 tiny superficial erosions, biopsy + H.pylori OVARIAN CYST REMOVAL : laparoscopic x 6 per pt, she may have endometriosis Medical History Medical History Date Comments Vitamin D deficiency 05/04/2022 Helicobacter pylori gastritis 04/2022 ga stric erosions secondary to HP GERD (gastroesophageal reflux disease) 08/30/2023 Family History Medical History Relation Name Comments Bladder Cancer Father diagnosed Breast cancer Father's side aunt Other cancer Mother skin cancer in her umbilicus Depression Sister x2 Ovarian cancer Neg Hx Uterine cancer Neg Hx Relation Name Status Comments Father Alive Father's side aunt Mother Alive Sister x2 Alive Social History Tobacco Use Types Packs/Day Years [...] care for your loved ones. For example, career technical supervisor or elderly care for an older adult? [...] AM EST Sexual Orientation Not on file Obstetrics History Last Filed Vital Signs Vital Sign Reading [...] Mass Index 22.13 08/09/2024 9:28 AM EST Plan of Treatment Upcoming Encounters Date Type Department Care Team (Late st Contact Info) Description 09/17/2024 2:40 PM EDT Appointment Radiology Department - [address] [phone] 02/06/2025 9:45 AM EDT Office Visit Adult Medicine [address] [phone] Fiorella Avalos PA [address] [place] [address] Health Maintenance Due Date Last Done Comments Hepatitis B Vaccines (1 of 3 - 19+ 3-dose series) 2002 HIV Screening 04/21/2022 Hepatitis C Screening 04/21/2022 Cervical Cancer Screening: P ap Smear 11/22/2023 11/21/2020 COVID-19 Vaccine ( - 2024-2 5 season) 2024 Depression Screening 08/08/2025 08/08/2024, 07/13/2023 Social Influencers of Health Screening 08/08/2025 08/08/2024 Breast Cancer Screening 09/05/2025 09/06/2023 DTaP,Tdap,and Td Vaccines (2 - Td or Tdap) 04/01/2031 04/01/2021 Influenza Vaccine Completed 08/09/2024, 06/17/2023, 04/01/2021 HIB Vaccines Aged Out No longer eligi ble based on patient's age to complete this topic HPV Vaccines Aged Out No longer eligi ble based on patient's age to complete this topic Hepatitis A Vaccines Aged Out No long er eligible based on patient's age to complete this topic IPV Vaccines Aged Out No longer eligi ble based on patient's age to complete this topic MMR Vaccines Aged Out No longer eligi ble based on patient's age to complete this topic Meningococcal ACWY Vaccine Aged Out N o longer eligible based on patient's age to complete this topic Meningococcal B Vacine Aged Out No lo nger eligible based on patient's age to complete this topic Pneumococcal Vaccine: Pediatrics (0 to 5 Years) and At-Risk Patients (6 to 64 Years) Aged Out No longer eligible b ased on patient's age to complete this topic RSV Immunization Patients Under 20 months Aged Out No longer eligible b ased on patient's age to complete this topic Varicella Vaccines Aged Out No longer eligible based on patient's age to complete this topic Procedures Procedure Name Priority Date/Time Associated Diagnosis Comments THYROID STIMULATING HORMONE WITH REFLEX TO FREE T4 AND FREE T3 Routine 08/09/2024 9:59 AM EST Angy's thyroiditis SCREENING MAMMOGRAPHY BI 2-VIEW BREAST INC CAD Routine 09/06/2023 2:54 PM EDT Encounter for screening mammogram for malignant neoplasm of breast PAP SMEAR Routine 11/21/2020 from Last 3 Months or Most Recently Relevant to Health Maintenance Results * Thyroid stimulating hormone with reflex to free t4 and free t3 (08/09/2024 9:59 AM EST) TSH 2.14 0.40 - 4.00 mcIU/mL LAB CHEMISTRY METHOD 08/09/2024 12:58 PM EST [facility] Blood Venous blood specimen / Unknown Venipuncture / Unknown 08/09/2024 9:59 AM EST 08/09/2024 9:59 AM EST us Sarahi Alvarez MD LAB BLOOD ORDERABLES Final Resul t [facility] [address] [place] [address], * SCREENING MAMMOGRAPHY BI 2-VIEW BREAST INC CAD (09/06/2023 2:54 PM EDT) Anatomical Region Laterality Modality Radiographic Gale ging 08/30/2023 12:5 4 PM EDT Narrative 09/07/2023 10:14 AM EDT This is a summary report. The complete report is available in the patient's medical record. If you cannot access the medical record, please contact the sending organization for a detailed fax or copy. Baseline screening, full field digital tomosynthesis mammography, reviewed with CAD. ?? The breast tissue is dense, limiting sensitivity. ??No suspicious mass, architectural distortion or suspicious calcifications are identified. IMPRESSION: : Dense breast tissue, limiting the sensitivity of mammography. No mammographic evidence of malignancy. BIRADS 1-Negative; N. 5 year breast cancer risk assessment 0.6 % Lifetime breast cancer risk assessment 11.1 % Breast cancer risk category Breast cancer risk not assessed Procedure Note Raman Pierre MD - 02/06/2024 This is a summary report. The complete report is available in thepatient's medical record. If you cannot access the medical record, pleasecontact the sending organization for a detailed fax or copy. Baseline screening, full field digital tomosynthesis mammography, reviewedwith CAD. The breast tissue is dense, limiting sensitivity. Nosuspicious mass, architectural distortion or suspicious calcifications areidentified. IMPRESSION: : Dense breast tissue, limiting the sensitivity of mammography. Nomammographic evidence of malignancy. BIRADS 1-Negative; N. 5 year breast cancer risk assessment 0.6 % Lifetime breast cancer risk assessment 11.1 % Breast cancer risk category Breast cancer risk not assessed us Sarahi Alvarez MD IMG XR PROCEDURES Final Result * Pap smear (11/21/2020) 11/21/2020 Narrative HISTORICAL TESTING LAB RESULTING AGENCY - 12/02/2020 1:36 PM EDT [id number] THINPREP PAP AND CELL BLOCK: NEGATIVE FOR SQUAMOUS INTRAEPITHELIAL LESION AND MALIGNANCY . REACTIVE CELLULAR CHANGES. JENISE KENT , RENETTA(ASCP) (CASE SCREENED 11 27 2020) MAITE WETZEL M.D. , PATHOLOGIST (CASE ELECTRONICALLY SIGNED 11 28 2020) RESULT OF APTIMA HIGH RISK HPV ASSAY: HIGH RISK HPV: ??NEGATIVE (SEROTYPES 16,18,31,33,35,39,45,51,52,56,58,59,66,68) COMPLETED ON 2020-11-25 ADEQUACY: SATISFACTORY ENDOCERVICAL/TRANSFORMATION ZONE COMPONENT PRESENT. SOURCE: THINPREP PAP HPV ANY DX: ??REFLEX 16 AND 18, CERVICAL, IMAGED CLINICAL INFORMATION: HPV ANY DIAGNOSIS. HORMONES, PAP HX NEG 2016, NO LMP RECORDED, DYSFUNCTIONAL UTERINE BLEEDING [Z12.4, N93.8] CB 11/24/20 us [facility] CYTOLOGY ORDERABLES Final Result HISTORICAL TESTING LAB RESULTING AGENCY from Last 3 Months or Most Recently Relevant to Health Maintenance [place] [place] [address] [place] [address] Care Teams Regional Sales Coordinator Relationship Specialty Start Date End Date Sarahi Alvarez MD [address] [place] [address] PCP - General Internal Medicine 03/09/21
--- NOTE | 2024-08-17 08:21 | ED_ITS ---
HPI - General Adult General Chief complaint: General Medical Stated complaint: low blood pressure Time Seen by Provider: 08/17/24 07:37 Source: patient Mode of arrival: ambulatory Limitations: no limitations History of Present Illness ED Provider: Dunia Vasquez NP HPI narrative: Patient is a 39-year-old female who presents emergency department for evaluation. She reports over the past 3 days she has been experiencing a dizziness sensation described as feeling like she is on a boat, a whoosing sound to the bilateral ears, intermittent blurred vision, intermittent nausea. She has also been experiencing a headache over the past few days which is typical for her, she endorses a history of chronic headaches, states that this headache is no different than what she has previously experienced. Denies any recent fall or head injury. She also expresses concern that in the morning and the evening hours she is having low blood pressure readings; 89/54 and 91/53. Denies taking any high blood pressure medications. Blood pressure is being measured with an automatic arm cuff. She reports that she believes she is well hydrated, she drinks about 4 20oz bottles of water daily. She denies associated neck pain, neck stiffness, chest pain, shortness of breath, palpitations, numbness or tingling of the extremities, abdominal pain, vomiting. Related Data Home Medications ?Medication ?Instructions ?Recorded ?Confirmed cholecalciferol (vitamin D3) 50 50 mcg PO DAILY 04/19/23 04/19/23 mcg (2,000 unit) tablet loratadine 10 mg tablet (Claritin) 10 mg PO DAILY 04/19/23 04/19/23 tizanidine 4 mg tablet 4 mg PO Q8H PRN muscle spasm 04/19/23 04/19/23 Previous Rx's ?Medication ?Instructions ?Recorded meclizine 25 mg tablet 25 mg PO TID PRN dizziness #20 tabs 08/17/24 Allergies Allergy/AdvReac Type Severity Reaction Status Date / Time No Known Allergies Allergy Verified 08/17/24 06:41 Review of Systems 2 Review of Systems: Yes all other systems are reviewed and are negative PMFSH Past Medical History Attestation statement: The following information was validated with the patient. Source: old records reviewed Medical History Patient denies medical problems Social History Social History Smoked in Last 30 Days: No Use of substances other than those prescribed or required for medical reasons: No Advance Directives: No Advance Directives Information Provided: No Do you have a plan to hurt others: No Plan Patient : No Physical Exam ED Vital Signs: Vital Signs - 24 hr 08/17/24 06:37 08/17/24 09:06 08/17/24 09:08 Temperature 98.4 F Pulse Rate 70 62 62 Respiratory Rate 16 16 Blood Pressure 121/77 110/56 L 110/56 L Pulse Oximetry 98 100 Oxygen Delivery Method Room Air Room Air 08/17/24 09:08 08/17/24 09:08 Temperature Pulse Rate 64 66 Respiratory Rate Blood Pressure 131/64 131/85 Pulse Oximetry Oxygen Delivery Method BMI result Body Mass Index 22.0 Appearance: Alert.?Oriented to person, place and time. No acute distress.?Normal affect. Eyes: Pupils equal, round and reactive to light.? ENT: Pharynx normal.?? Neck: Normal inspection.? Neck supple.?? CVS: Heart sounds normal. Normal heart rate and rhythm.? Pulses normal.?? Respiratory: No respiratory distress.? Lung sounds clear to auscultation bilaterally?? Abdomen: Soft and non-tender. Normoactive bowel sounds. No pulsatile mass.?? Skin: Skin warm and dry.? Normal skin color.? Normal skin turgor.?? Extremities: No lower extremity edema.? No calf ttp? Neuro: No focal neurological deficit observed, CN II-XII intact, normal sensory observed, normal coordination observed. Level of consciousness: Appropriate for age. Motor strength: Proximal right upper extremity 5 /5, distal right upper extremity 5 /5, proximal left upper extremity 5 /5, distal left upper extremity 5 /5, right lower extremity 5 /5, left lower extremity 5 /5.? Speech: Normal, Gait: Normal, Zizxup-cn-hyyy test: Normal, Ehdo-tv-yfqo test: Normal. Course Reevaluation(s) Reevaluation #1: EKG revealing a normal sinus rhythm with ventricular rate of 60, QTC 414, no ST elevation, ST depression, no acute ischemic changes. Patient feeling much improved after receiving 1 L normal saline IV fluid in addition to meclizine. Suspect symptoms secondary to mild dehydration and vertigo. Sent prescription for meclizine to pharmacy, encouraged increased fluid intake to 5-6 bottles of water daily and outpatient follow-up with her primary care doctor. Medications Administered Discontinued Medications Generic Name Dose Route Start Last Admin Trade Name Abdias PRN Reason Stop Dose Admin Acetaminophen 975 mg 08/17/24 08:56 08/17/24 09:33 Acetaminophen 325 Mg Tablet PO 08/17/24 08:57 975 mg ONCE ONE Administration Sodium Chloride 1,000 mls @ 999 mls/hr 08/17/24 09:00 08/17/24 11:31 Ns IV 08/17/24 10:00 Infused .Q1H1M EFRAÍN Infusion Meclizine HCl 25 mg 08/17/24 08:56 08/17/24 09:33 Meclizine Hcl 25 Mg Tablet PO 08/17/24 08:57 25 mg ONCE ONE Administration Medical Decision Making Medical Decision Making [facility] Narrative: Patient is a 39-year-old female with no reported past medical history who presents emergency department for evaluation of dizziness coming concern for 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 Speaking other symptoms most concerning for vertigo, orthostatic hypotension, dehydration. She has no focal neurological deficits, no ataxia, without risk factors, low suspicion for cerebellar CVA. Vital signs are stable no hypotension, tachycardia tachypnea or hypoxia. On review of serum labs obtained prior to my assumption of care CBC is without leukocytosis anemia or thrombocytopenia. No electrolyte derangement. No ANKUR. Urinalysis without evidence of infection, is a bit concentrated with spec grav 1.025, concerning for dehydration. Orthostatic vital signs were negative. At this time will trial a L normal saline IV fluid, meclizine 25 mg p.o., and acetaminophen 975 p.o. for headache. Neuro exam with no abnormal findings, no focal neuro deficits, no spontaneous or gaze evoked nystagmus, no ataxia, no diplopia, no dysarthria,no dysphagia, no dysphonia, no dysmetria. Will additionally obtain EKG and troponin to evaluate for ischemia/arrhythmia as etiology for dizziness I have a lower suspicion for such. Differential Diagnosis Differential Diagnoses: The differential diagnosis associated with the presentation includes (See narrative above) Admission/Observation Consideration of admission/observation: Escalation of care including admission/observation considered Lab Data [facility] Lab Attestation statement: I reviewed the patient's lab results. (See narrative above) 08/17/24 06:56 08/17/24 06:56 Labs: Lab Results 08/17/24 08/17/24 Range/Units 06:56 09:26 WBC 5.5 (4.8-10.8) X10*3/uL RBC 4.45 (4.20-5.50) X10*6/uL Hgb 13.6 (12.0-16.0) g/dl Hct 40.3 (37.0-47.0) % MCV 90.6 (80.0-98.0) fL MCH 30.6 (27.0-33.0) pg MCHC 33.7 (31.0-35.0) g/dl RDW 11.6 (11.0-16.0) % Plt Count 257 (160-400) X10*3/uL MPV 10.0 (9.4-12.3) fL Immature Gran % (Auto) 0.2 (0.0-0.4) % Neut % (Auto) 62.5 (45-73) % Lymph % (Auto) 25.9 (20-40) % [place] % (Auto) 8.9 (2-11) % Eos % (Auto) 2.0 (0-4) % Baso % (Auto) 0.5 (0-2) % Lymph # (Auto) 1.4 (1.2-4.9) X10*3/uL [place] # (Auto) 0.5 (0.1-1.2) X10*3/uL Eos # (Auto) 0.1 (0.0-0.4) X10*3/uL Baso # (Auto) 0.0 (0.0-0.2) X10*3/uL Abs Immat Gran (auto) 0.01 (0.00-0.03) X10*3/uL Absolute Neuts (auto) 3.4 (2.0-8.3) x10*3/uL Absolute Nucleated RBC 0.000 (0.0-0.012) X10*3/uL Nucleated RBC % (auto) 0.0 (0.0-0.2) /100WBC Sodium 139 (135-145) mmol/L Potassium 4.0 (3.3-5.1) mmol/L Chloride 106 (96-108) mmol/L Carbon Dioxide 26 (22-29) mmol/L Anion Gap 11 L (12-20) BUN 18 H (9-16) mg/dL Creatinine 0.70 (0.5-1.4) mg/dL Estim Creat Clear Calc 91.3 Estimated GFR > 60 Random Glucose 93 (60-115) mg/dL Calcium 9.4 (8.4-10.2) mg/dL Troponin I High Sens < 2.7 (<3.5-17.0) ng/L Urine Color Yellow Urine Appearance Clear Urine pH 5.5 (5.0-9.0) Ur Specific [place] 1.025 (1.005-1.025) Urine Protein Negative (Neg-Trace) mg/dL Urine Glucose (UA) Negative (Negative) mg/dL Urine Ketones Negative (Negative) mg/dL Urine Blood Negative (Negative) Urine Nitrite Negative (Negative) Ur Leukocyte Esterase Negative (Negative) Urine Test NEGATIVE (NEGATIVE) Independent Historian Clinical information obtained from an independent historian. History obtained from or confirmed by: Spouse External Record Review External record reviewed: Outpatient record Discharge Plan Discharge Clinical Impression: Vertigo, Dehydration Patient Disposition: Home, Self-Care Instructions: Dehydration (ED), Vertigo (ED) Additional Instructions: as discussed, your workup today is concerning that you were mildly dehydrated, he received IV fluids in addition to a medication called meclizine to help with vertigo, with improvement in your symptoms. I recommend that you increase your fluid intake to 5-6 of your water bottles daily. You may continue to monitor your blood pressure levels as you have been if you are having persistent dizziness. Take the meclizine as prescribed for dizziness. Follow up outpatient with your primary care doctor. You may return with any new or worsening symptoms or concerns Prescriptions: New meclizine 25 mg tablet 25 mg PO TID PRN (Reason: dizziness) Qty: 20 0RF No Action tizanidine 4 mg tablet 4 mg PO Q8H PRN (Reason: muscle spasm) loratadine [Claritin] 10 mg Tablet 10 mg PO DAILY cholecalciferol (vitamin D3) 50 mcg (2,000 unit) Tablet 50 mcg PO DAILY Referrals: Sarahi Alvarez MD [Primary Care Provider] - Print Language: Amharic
--- NOTE | 2024-08-17 08:57 | ECG_ITS ---
Test Reason : DIZZINESS Blood Pressure : */* mmHG Vent. Rate : 60 BPM Atrial Rate : 60 BPM P-R Int : 154 ms QRS Dur : 88 ms QT Int : 414 ms P-R-T Axes : 69 25 24 degrees QTcB Int : 414 ms Normal sinus rhythm Low voltage QRS Borderline ECG When compared with ECG of 19-Apr-2023 11:42, No significant change was found Referred By: Dunia Vasquez Electronically Signed By: Suresh Vang
[2024-08-17 09:06] VITALS: BP 110/56; PULSE 62; RESP 16; O2SAT 100
[2024-08-17 09:08] VITALS: BP 110/56; BP 131/64; BP 131/85; PULSE 62; PULSE 64; PULSE 66
[2024-08-17] MEDS: Meclizine HCl 25 MG TABLET PO (09:33)
[2024-08-17] MEDS: Acetaminophen 325 MG TABLET 975 MG PO (09:33)
[2024-08-17] MEDS: 0.9 % Sodium Chloride 1,000 ML 999 ML IV (09:33)
[2024-08-17 10:16] LABS: Troponin-I High Sensitivity < 2.7 ng/L (<3.5-17.0)
--- NOTE | 2024-08-17 11:49 | PC.NURSE ---
Feeling better, ambulatory to bathroom and states sx have improved
[2024-08-17 12:42] VITALS: BP 123/68; PULSE 68; RESP 17; TEMP 36.7; O2SAT 98
[2024-08-17 12:50] VITALS: BP 123/68; PULSE 68; RESP 17; TEMP 36.7; O2SAT 98
== END 2024-08-17 12:50 | disposition home or self-care (01) ==
PROVIDERS: Nurse Practitioner Family; Emergency Provider Emergency Medicine; PCP Internal Medicine
DX: R42 Dizziness and giddiness (principal); E86.0 Dehydration; R11.2 Nausea with vomiting, unspecified; R94.31 Abnormal electrocardiogram [ECG] [EKG]; Z79.899 Other long term (current) drug therapy
CPT/HCPCS: 36415; 80048; 81003; 81025; 84484; 85025; 93005; 96360; 96361; 99284; 99285

== ENCOUNTER → 2024-08-17 08:57 | Outpatient (BNV) | payer OTHER, SELFPAY | PROVIDERS: Emergency Provider Emergency Medicine; PCP Internal Medicine; Visit Provider Internal Medicine Cardiovascular Disease | DX: R42 Dizziness and giddiness (principal) | CPT/HCPCS: 93010 ==

== ENCOUNTER 2025-06-15 15:25 | Emergency (ER) | payer OTHER, SELFPAY ==
--- NOTE | 2025-06-15 | ECG_ITS ---
Test Reason : chest pain Blood Pressure : */* mmHG Vent. Rate : 78 BPM Atrial Rate : 78 BPM P-R Int : 152 ms QRS Dur : 82 ms QT Int : 384 ms P-R-T Axes : 68 21 26 degrees QTcB Int : 437 ms Normal sinus rhythm Normal ECG When compared with ECG of 17-Aug-2024 09:36, No significant change was found Referred By: Mateo Mendez Electronically Signed By: JS JOE MD
--- NOTE | ~2025-06-15 | XR_ITS ---
CLINICAL HISTORY: pain 2 view chest x-ray. Comparison: CT - CT CHEST ANGIOGRAPHY WITH IV CONTRAST - 04/15/23 20:29 EDT CR/SR - XR CHEST 2 VIEWS - 04/15/23 11:44 EDT Findings: Normal lung volumes. Lungs are clear. No pneumothorax or pleural effusion. Heart size normal. No passive venous congestion. No midline shift or tracheal deviation. No acute fracture. Impression: 1. No acute cardiopulmonary disease. This document has been electronically signed by: Rush Medrano MD on 06/15/2025 17:16:27
[2025-06-15 15:50] VITALS: BP 161/63; PULSE 90; RESP 18; TEMP 36.8; O2SAT 99; BMI 22.0
--- NOTE | 2025-06-15 15:51 | ED.GENADULT ---
HPI - General Adult General Chief complaint: Chest Pain Stated complaint: chest pain Related Data Home Medications ?Medication ?Instructions ?Recorded ?Confirmed cholecalciferol (vitamin D3) 50 50 mcg PO DAILY 04/19/23 04/19/23 mcg (2,000 unit) tablet loratadine 10 mg tablet (Claritin) 10 mg PO DAILY 04/19/23 04/19/23 tizanidine 4 mg tablet 4 mg PO Q8H PRN muscle spasm 04/19/23 04/19/23 Previous Rx's ?Medication ?Instructions ?Recorded meclizine 25 mg tablet 25 mg PO TID PRN dizziness #20 tabs 08/17/24 Allergies Allergy/AdvReac Type Severity Reaction Status Date / Time nut - unspecified Allergy Severe Anaphylaxis Verified 06/15/25 15:52 [facility] Past Medical History Medical History Patient denies medical problems Social History Social History Advance Directives: No Advance Directives Information Provided: No Do you have a plan to hurt others: No Plan Physical Exam ED Vital Signs: BMI result Body Mass Index 22.0 Course Course Course Narrative: RME, this is a rapid medical exam performed by Jorge Mendez please refer to primary provider for complete H&P- 40-year-old female presents for evaluation of left-sided chest pain since yesterday. Pain is pleuritic in nature. Plan for cardiac workup Medical Decision Making Lab Data 06/15/25 16:19 06/15/25 16:19 Labs: Lab Results 06/15/25 Range/Units 16:19 WBC 7.8 (4.8-10.8) X10*3/uL RBC 4.27 (4.20-5.50) X10*6/uL Hgb 12.7 (12.0-16.0) g/dl Hct 38.7 (37.0-47.0) % MCV 90.6 (80.0-98.0) fL MCH 29.7 (27.0-33.0) pg MCHC 32.8 (31.0-35.0) g/dl RDW 11.9 (11.0-16.0) % Plt Count 276 (160-400) X10*3/uL MPV 10.4 (9.4-12.3) fL Immature Gran % (Auto) 0.4 (0.0-0.4) % Neut % (Auto) 75.6 H (45-73) % Lymph % (Auto) 15.5 L (20-40) % [place] % (Auto) 7.3 (2-11) % Eos % (Auto) 0.8 (0-4) % Baso % (Auto) 0.4 (0-2) % Lymph # (Auto) 1.2 (1.2-4.9) X10*3/uL [place] # (Auto) 0.6 (0.1-1.2) X10*3/uL Eos # (Auto) 0.1 (0.0-0.4) X10*3/uL Baso # (Auto) 0.0 (0.0-0.2) X10*3/uL Abs Immat Gran (auto) 0.03 (0.00-0.03) X10*3/uL Absolute Neuts (auto) 5.9 (2.0-8.3) x10*3/uL Absolute Nucleated RBC 0.000 (0.0-0.012) X10*3/uL Nucleated RBC % (auto) 0.0 (0.0-0.2) /100WBC Sodium 139 (135-145) mmol/L Potassium 4.1 (3.3-5.1) mmol/L Chloride 106 (96-108) mmol/L Carbon Dioxide 26 (22-29) mmol/L Anion Gap 11 L (12-20) BUN 16 (9-16) mg/dL Creatinine 0.67 (0.5-1.4) mg/dL Estim Creat Clear Calc 94.4 Estimated GFR > 60 Random Glucose 94 (60-115) mg/dL Calcium 9.3 (8.4-10.2) mg/dL Total Bilirubin 0.2 (0.0-1.0) mg/dL AST 18 (5-31) U/L ALT 13 (0-31) U/L Alkaline Phosphatase 40 (39-117) U/L Troponin I High Sens < 2.7 (<3.5-17.0) ng/L Total Protein 7.5 (6.5-8.0) g/dL Albumin 4.6 (3.5-5.0) g/dL Lipase 15 (8-78) U/L Beta HCG, Quant < 2 mIU/mL Influenza Type A (PCR) NEGATIVE (Negative) Influenza Type B (PCR) NEGATIVE (Negative) RSV RNA Qual (PCR) NEGATIVE (Negative) SARS-CoV-2 RNA (RT-PCR) NEGATIVE (Negative) Discharge Plan Discharge Clinical Impression: Chest pain Patient Disposition: Left W/O Completing Treatment Prescriptions: No Action meclizine 25 mg tablet 25 mg PO TID PRN (Reason: dizziness) Qty: 20 0RF tizanidine 4 mg tablet 4 mg PO Q8H PRN (Reason: muscle spasm) loratadine [Claritin] 10 mg Tablet 10 mg PO DAILY cholecalciferol (vitamin D3) 50 mcg (2,000 unit) Tablet 50 mcg PO DAILY Discharge Date/Time: 06/15/25 20:28
[2025-06-15 16:25] LABS: MANUAL DIFF FLAG NO
[2025-06-15 16:29] LABS: Hematocrit 38.7 % (37.0-47.0); Hemoglobin 12.7 g/dl (12.0-16.0); Imm Gran Abs Auto 0.03 X10*3/uL (0.00-0.03); Imm Gran Pct Auto 0.4 % (0.0-0.4); Lymphocytes Absolute Auto 1.2 X10*3/uL (1.2-4.9); Mean Corpuscular HGB Conc 32.8 g/dl (31.0-35.0); Mean Corpuscular Hemoglobin 29.7 pg (27.0-33.0); Mean Corpuscular Volume 90.6 fL (80.0-98.0); NRBC Abs Auto 0.000 X10*3/uL (0.0-0.012); NRBC Pct Auto 0.0 /100WBC (0.0-0.2); Platelet Count 276 X10*3/uL (160-400); Red Blood Count 4.27 X10*6/uL (4.20-5.50); White Blood Count 7.8 X10*3/uL (4.8-10.8)
[2025-06-15 16:46] LABS: Alanine Aminotransferase 13 U/L (0-31); Albumin Level 4.6 g/dL (3.5-5.0); Alkaline Phosphatase 40 U/L (39-117); Anion Gap 11 (12-20); Aspartate Amino Transferase 18 U/L (5-31); Blood Urea Nitrogen 16 mg/dL (9-16); Calcium 9.3 mg/dL (8.4-10.2); Carbon Dioxide 26 mmol/L (22-29); Chloride 106 mmol/L (96-108); Creatinine Clr Calc Pharmacy 94.4; Estimated Glomerular Filt Rate > 60; Lipase 15 U/L (8-78); Potassium 4.1 mmol/L (3.3-5.1); Sodium 139 mmol/L (135-145); Total Protein 7.5 g/dL (6.5-8.0)
[2025-06-15 16:50] LABS: Troponin-I High Sensitivity < 2.7 ng/L (<3.5-17.0)
[2025-06-15 17:02] LABS: Resp Syncy Virus RNA Qual PCR NEGATIVE (Negative); SARS COV2 PCR INHOUSE NEGATIVE (Negative)
--- OUTSIDE RECORDS SUMMARY | 2025-06-15 20:19 | XMS_ITS | Encounter Summary ---
Author Organization [employer] [place] [address] Care Team Providers Care Tool Engineer Name Role Phone Sarahi Alvarez MD Primary Care Provider [phone] Encounter Details Date Type Department Care Team ([facility] Contact Info) Description 05/20/2025 Results Follow-Up Adult Medicine [address] [phone] Kendy Beltrán [place] Social History Tobacco Use Types Packs/Day Years [...] care for your loved ones. For example, children librarian or elderly care for an older adult? [...] Date Recorded What is your living situation? Unrecognized valu e 08/08/2024 Comments No Sex and Gender Information Value Date Recorded Sex Assigned at Not on file Legal Sex Female 12:12 PM EDT Gender Identity Female 07/28/2024 8:45 AM EST Sexual Orientation Not on file documented as of this encounter Plan of Treatment Upcoming Encounters Date Type Department Care Team (Late st Contact Info) Description 07/15/2025 10:00 AM EST Office Visit Obstetrics and Gynecology - [place] [address] [place] [address] Jennifer Douglas, RASHEED [address] [place], [place] documented as of this encounter Visit Diagnoses Not on filedocumented in this encounter Additional Health Concerns Assessment Noted Time PHQ-9 Depression Total Score: 0 08/08/19 25 3:24 PM EST documented as of this encounter Care Teams Tool Engineer Relationship Specialty Start Date End Date Sarahi Alvarez MD [address] [place] [address] PCP - General Internal Medicine 03/09/21 documented as of this encounter
--- OUTSIDE RECORDS SUMMARY | 2025-06-15 20:20 | XMS_ITS ---
Author Name [facility] Organization Unknown Care Team Organization Name Specialty Phone Email Start Date End Da te [facility] Sarahi Alvarez Primary Care 04/27/2022 4
--- OUTSIDE RECORDS SUMMARY | 2025-06-15 20:20 | XMS_ITS | Clinical Summary ---
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 06/03/2023 Active EPINEPHrine (EpiPen 2-Conrad) 0.3 mg/0.3 mL injection Inject 0.3 mL (0.3 mg total) into the thigh. 04/27/2021 Active loratadine (CLARITIN) 10 mg tablet Take 1 tablet (10 mg total) by mouth. 04/11/2023 Active Active Problems Problem Noted Date Diagnosed Date GERD (gastroesophageal reflux disease) Angy's thyroiditis 06/17/2023 Endometriosis 07/23/2022 Overview (08/08/2024): Left ovarian cyst 06/28/2022 Depression 05/04/2022 Vitamin D deficiency 05/04/2022 Encounters Date Type Department Care Team Description 05/20/2025 Results Follow-Up Adult Medicine [address] [phone] Kendy Beltrán [place] 05/15/2025 3:49 PM EST - 05/15/2025 11:59 PM EST Hospital Encounter Radiology Department - [address] [phone] Chronic bilateral low back pain with bilateral sciatica Discharge Disposition: Home or Self Care 05/07/2025 10:15 AM EST Office Visit Adult [address] [phone] Sarahi Alvarez MD Chronic bilateral low back pain with bilateral sciatica (Primary Dx) 04/29/2025 10:30 AM EST Treatment Outpatient Rehabilitation - [address] [phone] Heath Glover, PT Chronic bilateral low back pain without sciatica (Primary Dx) 2025 10:00 AM EDT Treatment Outpatient Rehabilitation - [address] [phone] Heath Glover, PT Chronic bilateral low back pain without sciatica (Primary Dx) 03/19/2025 8:00 AM EDT Treatment Outpatient Rehabilitation - [address] [phone] Heath Glover, PT Chronic bilateral low back pain without sciatica (Primary Dx) from Last 3 Months Immunizations Immunization Administration Dates Next Due Influenza Quadravalent, MDCK , 0.5ml, preservative free (Flucelvax) 6mo and older 06/17/2023,04/01/2021 Influenza trivalent, MDCK, 0 .5mL, preservative free (Flucelvax) 6mo and older 05/07/2025,08/09/2024 PPD Test 12/07/2016 Tdap Tetanus diptheria acell [...] for your loved ones. For example, child custody evaluator or elderly care for an older adult? [...] AM EST Sexual Orientation Not on file Last Filed Vital Signs Vital Sign Reading Time Taken Comments Blood Pressure 98/52 05/07/2025 10:17 AM EST Pulse 91 05/07/2025 10:17 AM EST Temperature 36.3 C (97.3 F) 05/07/2025 10:17 AM EST Respiratory Rate 14 05/07/2025 10:1 7 AM EST Oxygen Saturation 99% 05/07/2025 10: 17 AM EST Inhaled Oxygen Concentration - - Weight 59.3 kg (130 lb 12.8 oz) 025 10:17 AM EST Height 162.6 cm (5' 4 ) 05/07/2025 10:1 7 AM EST Body Mass Index 22.45 05/07/2025 10:17 AM EST Plan of Treatment Upcoming Encounters Date Type Department Care Team (Late st Contact Info) Description 07/15/2025 10:00 AM EST Office Visit Obstetrics and Gynecology - [place] [address] [place] [address] Jennifer Douglas, RASHEED [address] [place], [place] Health Maintenance Due Date Last Done Comments Hepatitis A Vaccines (1 of 2 - Risk 2-dose series) 2002 Hepatitis B Vaccines (1 of 3 - 19+ 3-dose series) 2002 HPV Vaccines (1 - 3-dose SCDM series) 2010 HIV Screening 04/21/2022 Hepatitis C Screening 04/21/2022 Cervical Cancer Screening: Pap Smear 11/22/2023 11/21/2020 COVID-19 Vaccine ( season) 2025 Social Influencers of Health Screening 08/08/2025 08/08/2024 Breast Cancer Screening 09/05/2025 09/06/2023 Cholesterol Screening (Lipid Panel) 02/13/2030 02/13/2025 DTaP,Tdap,and Td Vaccines (2 - Td or Tdap) 04/01/2031 04/01/2021 RSV Immunization Adult Patients (1 - 1-dose 75+ series) 2058 Depression Screening Completed 08/08/2024 Influenza Vaccine Completed 05/07/2025, , 06/17/2023, Additional history exists HIB Vaccines Aged Out No longer eligi [...] age to complete this topic Meningococcal B Vaccine Aged Out No l onger eligible based on patient's age to complete this topic Pneumococcal Vaccine: Pediatrics (0 to 5 Years) and At-Risk Patients (6 to 49 Years) Aged Out No longer eligible based on patient's age to complete this topic RSV Immunization Patients Under 20 months Aged Out No longer eligible based on patient's age to complete this topic Varicella Vaccines Aged Out No longer eligible based on patient's age to complete this topic Procedures Procedure Name Priority Date/Time Associated Diagnosis Comments MR LUMBAR SPINE WO CONTRAST Routine 05/15/2025 4:27 PM EST Chronic bilateral low back pain with bilateral sciatica LIPID PANEL WITH REFLEX TO DIRECT LDL Routine 02/13/2025 10:51 AM EDT Lipid screening SCREENING MAMMOGRAPHY BI 2-VIEW BREAST INC CAD Routine 09/06/2023 2:54 PM EDT Encounter for screening mammogram for malignant neoplasm of breast PAP SMEAR Routine 11/21/2020 from Last 3 Months or Most Recently Relevant to Health Maintenance Results * MR Lumbar Spine wo Contrast (05/15/2025 4:27 PM EST) Anatomical Region Laterality Modality L-spine, Spine Magnetic Resonan ce 05/15/2025 5:11 PM EST Impressions 05/15/2025 5:17 PM EST Limited by motion artifact. Otherwise, unremarkable exam. -------- FINAL REPORT -------- Dictated By: Therese Valentin Dictated Date: 05/15/2025 17:11 ET Assigned Physician: Therese Valentin Reviewed and Electronically Signed By: Therese Valentin Signed Date: 05/15/2025 17:17 ET Workstation ID: [id number] Transcribed By: Self Edit Transcribed Date: 05/15/2025 17:11 ET Narrative 05/15/2025 5:17 PM EST MR LUMBAR SPINE WO CONTRAST MR OF THE LUMBAR SPINE WITHOUT CONTRAST HISTORY: Chronic pain with sciatica and foot numbness, worsening. Technique: MR of the lumber spine was performed without contrast utilizing the standard departmental protocol. COMPARISON: Lumbar spine 12/01/2022. FINDINGS: Several sequences are limited by motion. Conus medullaris terminates at the [L2] level, and demonstrates normal signal. There is no abnormal thickening or clumping of the cauda equina nerve roots. There is normal alignment of the lumbar spine. Vertebral body heights are normal. Marrow signal is normal. At T12-L1, no significant disc herniation, central spinal canal stenosis or neuroforaminal narrowing. At L1-L2, no significant disc herniation, central spinal canal stenosis or neuroforaminal narrowing. At L2-L3, no significant disc herniation, central spinal canal stenosis or neuroforaminal narrowing. At L3-L4, no significant disc herniation, central spinal canal stenosis or neuroforaminal narrowing. At L4-L5, no significant disc herniation, central spinal canal stenosis or neuroforaminal narrowing. At L5-S1, no significant disc herniation, central spinal canal stenosis or neuroforaminal narrowing. Procedure Note Therese Valentin MD - 05/15/2025 MR LUMBAR SPINE WO CONTRAST MR OF THE LUMBAR SPINE WITHOUT CONTRAST HISTORY: Chronic pain with sciatica and foot numbness, worsening. Technique: MR of the lumber spine was performed without contrast utilizingthe standard departmental protocol. COMPARISON: Lumbar spine 12/01/2022. FINDINGS: Several sequences are limited by motion. Conus medullaristerminates at the [L2] level, and demonstrates normal signal. There is noabnormal thickening or clumping of the cauda equina nerve roots. There isnormal alignment of the lumbar spine. Vertebral body heights are normal.Marrow signal is normal. At T12-L1, no significant disc herniation, central spinal canal stenosisor neuroforaminal narrowing. At L1-L2, no significant disc herniation, central spinal canal stenosis orneuroforaminal narrowing. At L2-L3, no significant disc herniation, central spinal canal stenosis orneuroforaminal narrowing. At L3-L4, no significant disc herniation, central spinal canal stenosis orneuroforaminal narrowing. At L4-L5, no significant disc herniation, central spinal canal stenosis orneuroforaminal narrowing. At L5-S1, no significant disc herniation, central spinal canal stenosis orneuroforaminal narrowing. IMPRESSION: Limited by motion artifact. Otherwise, unremarkable exam. -------- FINAL REPORT -------- Dictated By: Therese Valentin Dictated Date: 05/15/2025 17:11 ET Assigned Physician: Therese Valentin Reviewed and Electronically Signed By: Therese Valentin Signed Date: 05/15/2025 17:17 ET Workstation ID: [id number] Transcribed By: Self Edit Transcribed Date: 05/15/2025 17:11 ET Sarahi Alvarez MD IM MRI PROCEDURES Final Result * (ABNORMAL) Lipid panel with reflex to direct LDL (02/13/2025 10:51 AM EDT) Cholesterol 219(H) 0 - 200 mg/dL LAB CHEMISTRY METHOD 02/13/2025 1:18 PM EDT [facility] Triglycerides 93 0 - 150 mg/dL LAB CHEMISTRY METHOD 02/13/2025 1:18 PM EDT [facility] HDL 94 >=40 mg/dL LAB CHEMISTRY METHOD 02/13/2025 1:18 PM EDT [facility] LDL Calculated 106(H) 0 - 100 mg/dL LAB CHEMISTRY METHOD 02/13/2025 1:18 PM EDT [facility] Comment:Estimated LDL Calcul ated using equation: Total cholesterol - HDL cholesterol - (Triglycerides/5) VLDL Cholesterol Kyler 18.6 mg/dL LAB CHEMISTRY METHOD 02/13/2025 1:18 PM EDT [facility] Non HDL Chol. (LDL+VLDL) 125 <145 mg/dL LAB CHEMISTRY METHOD 02/13/2025 1:18 PM EDT [facility] Chol/HDL Ratio 2.3 0.0 - 4.4 LAB CHEMISTRY METHOD 02/13/2025 1:18 PM EDT [facility] Blood Venous blood specimen / Unknown Venipuncture / Unknown 02/13/2025 10:51 AM EDT 02/13/2025 10:51 AM EDT Fiorella ESCALANTE LAB BLOOD ORDERABLES Final Re sult [facility] [address] [place] [address], * SCREENING MAMMOGRAPHY BI 2-VIEW BREAST INC [...] field digital tomosynthesis mammography, reviewed with CAD. The breast tissue is dense, limiting sensitivity. No suspicious mass, architectural distortion or suspicious calcifications [...] risk category Breast cancer risk not assessed Sarahi Alvarez MD IMG XR PROCEDURES Final Result * Pap smear (11/21/2020) 11/21/2020 Narrative HISTORICAL TESTING LAB RESULTING AGENCY - 12/02/2020 1:36 PM EDT [id number] THINPREP PAP AND CELL BLOCK: NEGATIVE FOR SQUAMOUS INTRAEPITHELIAL LESION AND MALIGNANCY . REACTIVE CELLULAR CHANGES. JENISE KENT , CT(ASCP) (CASE SCREENED 11 27 2020) MAITE WETZEL M.D. , PATHOLOGIST (CASE ELECTRONICALLY SIGNED 11 28 2020) RESULT OF APTIMA HIGH RISK HPV ASSAY: HIGH RISK HPV: NEGATIVE (SEROTYPES 16,18,31,33,35,39,45,51,52,56,58,59,66,68) COMPLETED ON 2020-11-25 ADEQUACY: SATISFACTORY ENDOCERVICAL/TRANSFORMATION ZONE COMPONENT PRESENT. SOURCE: THINPREP PAP HPV ANY DX: REFLEX 16 AND 18, CERVICAL, IMAGED CLINICAL INFORMATION: HPV ANY DIAGNOSIS. HORMONES, PAP HX NEG 2016, NO LMP RECORDED, DYSFUNCTIONAL UTERINE BLEEDING [Z12.4, N93.8] CB 11/24/20 Magdalena Yossi CN LAB CYTOLOGY ORDERABLES Final Result HISTORICAL TESTING LAB RESULTING AGENCY from Last 3 Months or Most Recently Relevant to Health Maintenance Insurance [facility] [employer] Care Teams Dermatology Physician Assistant Relationship Specialty Start Date End Date Sarahi Alvarez MD [address] [place] [address] PCP - General Internal Medicine 03/09/21
== END 2025-06-15 20:28 | disposition left against medical advice (07) ==
PROVIDERS: Physician Assistant; Emergency Provider Emergency Medicine; PCP Internal Medicine
DX: R07.9 Chest pain, unspecified (principal); Z03.818 Encounter for observation for suspected exposure to other biological agents ruled out
CPT/HCPCS: 71046; 80053; 83690; 84484; 84702; 85025; 87637; 93005; 99283

== ENCOUNTER → 2025-06-15 15:51 | Outpatient (BNV) | payer OTHER, SELFPAY | PROVIDERS: PCP Internal Medicine; Visit Provider Radiology Diagnostic Radiology | DX: R07.9 Chest pain, unspecified (principal) | CPT/HCPCS: 71046 ==

== ENCOUNTER → 2025-06-15 16:09 | Outpatient (BNV) | payer OTHER, SELFPAY | PROVIDERS: Emergency Provider Emergency Medicine; PCP Internal Medicine; Visit Provider Internal Medicine Cardiovascular Disease | DX: R07.9 Chest pain, unspecified (principal) | CPT/HCPCS: 93010 ==